=== PATIENT | male | born 1935 | race Caucasian/White ===

== ENCOUNTER → 2018-05-15 09:24 | Outpatient (CLI) | payer MEDICARE, OTHER, SELFPAY ==
[2018-05-15 12:25] LABS: AST(SGOT) 28 U/L (15-37); Alanine Aminotransfer ALT/SGPT 38 U/L (16-61); Albumin, Serum 3.7 g/dL (3.2-5.0); Alkaline Phosphatase 46 U/L (45-117); Anion Gap 10 (5-15); BUN 26 mg/dL (7-18); Calcium,Total 9.1 mg/dL (8.5-10.1); Chloride 104 mmol/L (98-107); Creatinine, Serum 1.24 mg/dL (0.70-1.30); EST Glomerular Filtration Rate 59 mL/min (>60); Est Glom Filt Rate - Afr Amer 72 mL/min (>60); Globulin 3.7 g/dL (2.2-4.2); Glucose 172 mg/dL (74-106); Potassium 4.3 mmol/L (3.5-5.1); Protein, Total 7.4 g/dL (6.4-8.2); Sodium Level 140 mmol/L (136-145)
[2018-05-15 12:41] LABS: Digoxin Level 1.08 ng/mL (0.80-2.00)
== END ==
PROVIDERS: Family Provider Family Medicine; PCP Family Medicine; Referring Provider Internal Medicine Cardiovascular Disease; Visit Provider Internal Medicine Cardiovascular Disease
DX: I47.2 Ventricular tachycardia (principal)
CPT/HCPCS: 36415; 80053; 80162

== ENCOUNTER → 2019-03-12 07:00 | Outpatient (CLI) | payer MEDICARE, OTHER, SELFPAY ==
[2019-03-12 10:05] LABS: Hematocrit 41.7 % (40-54); Hemoglobin 13.5 g/dL (13.0-16.5); Mean Corp Hgb Conc 32.4 g/dL (32-36); Mean Corpuscular Hgb 32.3 pg (27.0-32.0); Mean Corpuscular Volume 99.8 fL (80-94); Mean Platelet Vol. 11.2 fl (6.2-12.0); Platelet Count 179 K/mm3 (150-450); RBC Distribution Width CV 12.3 % (11.6-14.6); RBC Distribution Width SD 45.4 fl (35.1-43.9); Red Blood Count 4.18 M/mm3 (4.6-6.2); White Blood Count 7.6 K/mm3 (4.4-11.0)
[2019-03-12 10:22] LABS: Anion Gap 8 (5-15); BUN 23 mg/dL (7-18); BUN/Creat Ratio 19.7 RATIO (10-20); Chloride 107 mmol/L (98-107); Cholesterol 125 mg/dL (200); Creatinine, Serum 1.17 mg/dL (0.70-1.30); EST Glomerular Filtration Rate 63 mL/min (>60); Est Glom Filt Rate - Afr Amer 77 mL/min (>60); Glucose 124 mg/dL (74-106); High Density Lipoprotein 28 mg/dL; Potassium 4.4 mmol/L (3.5-5.1); Sodium Level 141 mmol/L (136-145); Triglycerides 599 mg/dL
[2019-03-12 10:37] LABS: Digoxin Level 1.12 ng/mL (0.80-2.00)
== END ==
PROVIDERS: Family Provider Family Medicine; PCP Family Medicine
DX: I50.22 Chronic systolic (congestive) heart failure (principal); Z95.810 Presence of automatic (implantable) cardiac defibrillator; I25.10 Atherosclerotic heart disease of native coronary artery without angina pectoris
CPT/HCPCS: 36415; 80048; 80061; 80162; 85027

== ENCOUNTER → 2019-09-17 07:14 | Outpatient (CLI) | payer MEDICARE, OTHER, SELFPAY ==
[2019-09-17 10:17] LABS: AST(SGOT) 32 U/L (15-37); Alanine Aminotransfer ALT/SGPT 43 U/L (16-61); Albumin, Serum 3.8 g/dL (3.2-5.0); Alkaline Phosphatase 43 U/L (45-117); Anion Gap 4 (5-15); BUN 25 mg/dL (7-18); BUN/Creat Ratio 20.2 RATIO (10-20); Calcium,Total 8.8 mg/dL (8.5-10.1); Chloride 106 mmol/L (98-107); Cholesterol 152 mg/dL (200); Creatinine, Serum 1.24 mg/dL (0.70-1.30); EST Glomerular Filtration Rate 59 mL/min (>60); Est Glom Filt Rate - Afr Amer 72 mL/min (>60); Globulin 3.8 g/dL (2.2-4.2); Glucose 153 mg/dL (74-106); High Density Lipoprotein 35 mg/dL; Potassium 4.1 mmol/L (3.5-5.1); Protein, Total 7.6 g/dL (6.4-8.2); Sodium Level 137 mmol/L (136-145); Triglycerides 533 mg/dL
[2019-09-17 10:39] LABS: Digoxin Level 1.16 ng/mL (0.80-2.00)
== END ==
PROVIDERS: PCP Family Medicine; Referring Provider Internal Medicine Cardiovascular Disease; Visit Provider Internal Medicine Cardiovascular Disease
DX: I25.10 Atherosclerotic heart disease of native coronary artery without angina pectoris (principal); I11.0 Hypertensive heart disease with heart failure; I50.9 Heart failure, unspecified; E78.5 Hyperlipidemia, unspecified
CPT/HCPCS: 36415; 80053; 80061; 80162

== ENCOUNTER → 2020-04-22 07:02 | Outpatient (CLI) | payer MEDICARE, OTHER, SELFPAY ==
[2020-04-22 11:00] LABS: ALB/GLOB Ratio 1.1 RATIO (0.9-2.4); AST(SGOT) 28 U/L (15-37); Alanine Aminotransfer ALT/SGPT 37 U/L (16-61); Albumin, Serum 3.7 g/dL (3.2-5.0); Alkaline Phosphatase 39 U/L (45-117); Anion Gap 6 (5-15); BUN 24 mg/dL (7-18); BUN/Creat Ratio 19.5 RATIO (10-20); Calcium,Total 8.9 mg/dL (8.5-10.1); Chloride 109 mmol/L (98-107); Cholesterol 94 mg/dL (200); Creatinine, Serum 1.23 mg/dL (0.70-1.30); EST Glomerular Filtration Rate 60 mL/min (>60); Est Glom Filt Rate - Afr Amer 72 mL/min (>60); Globulin 3.5 g/dL (2.2-4.2); Glucose 137 mg/dL (74-106); High Density Lipoprotein 35 mg/dL; Potassium 4.3 mmol/L (3.5-5.1); Protein, Total 7.2 g/dL (6.4-8.2); Sodium Level 141 mmol/L (136-145); Triglycerides 317 mg/dL; Very Low Density Lipoprotein 63 mg/dL (5-40)
== END ==
PROVIDERS: PCP Family Medicine; Referring Provider Internal Medicine Cardiovascular Disease; Visit Provider Internal Medicine Cardiovascular Disease
DX: I25.10 Atherosclerotic heart disease of native coronary artery without angina pectoris (principal); I42.9 Cardiomyopathy, unspecified; I11.0 Hypertensive heart disease with heart failure; I50.22 Chronic systolic (congestive) heart failure
CPT/HCPCS: 36415; 80053; 80061

== ENCOUNTER → 2021-01-17 12:56 | Outpatient (CLI) | payer MEDICARE, OTHER, SELFPAY ==
--- NOTE | 2021-01-17 12:57 | ECHOCS_ITS ---
Reason For Study: CAD Procedure This was a 2D Doppler, Color Flow transthoracic echocardiogram. The study was technically difficult. Contrast injection was performed. Bubble study performed. Exam performed in department. Left Ventricle Normal LV size. Severe segmental systolic dysfunction (see wall motion). The estimated ejection fraction is 25 %. No evidence for diastolic dysfunction. Infero-Basal: Hypokinetic. Basal inferoseptal: Hypokinetic. Mid-Anterior : Akinetic. Mid-Lateral : Akinetic. Mid-Posterior: Hypokinetic. Mid-Inferior: Hypokinetic. Mid-inferoseptal : Hypokinetic. Mid-anteroseptal : Akinetic. [place] : Akinetic. Right Ventricle Normal RV size. ICD or pacer leads identified within the right ventricle. Normal systolic function. Atria Normal left atrium. Normal right atrium. ICD or pacer leads identified within the right atrium. No doppler evidence for ASD. Mitral Valve There is no mitral annular calcification. Mild mitral valve prolapse. Mild-Moderate (1-2+) mitral valve insufficiency. Tricuspid Valve Normal tricuspid valve. Mild to moderate (1-2+) tricuspid valve insufficiency. Right ventricular systolic pressure estimated to be 23 mmHg. Aortic Valve Trisinus/trileaflet aortic valve. Mild diffuse aortic valve thickening. Pulmonic Valve The pulmonic valve is not well visualized. Trivial pulmonic valve insufficiency. Great Vessels Normal sized aortic root. Pericardium/Pleural No pericardial effusion. Medication 22 gauge I.V. with prn adaptor inserted into right arm. Diluted definity 2ml given slow IV push to enhance endocardial definition. Performed a rapid injection of agitated mix of 9 cc saline and 1cc air to assess for atrial septal defect. MMode/2D Measurements & Calculations LVIDd: 5.3 cm IVSd: 0.98 cm Ao root diam: 3.6 cm LVIDs: 4.7 cm LVPWd: 1.0 cm LA dimension: 4.2 cm FS: 11.5 % LAV(MOD-bp): 43.6 ml LA A4 area: 13.4 cm2 RA A4 area: 10.0 cm2 LAV(MOD-bp) Indexed: 22.9 ml/m2 LAV(MOD-sp2): 51.9 ml LAV(MOD-sp4): 32.7 ml Time Measurements MV dec time: 0.18 sec Doppler Measurements & Calculations MV E max aman: 42.9 cm/sec Lat Peak E' Aman: 12.6 cm/sec MV V2 max: 79.3 cm/sec MV A max aman: 66.3 cm/sec E/E' lat: 3.4 MV max P.5 mmHg MV E/A: 0.65 MV V2 mean: 38.8 cm/sec MV mean P.74 mmHg MV V2 VTI: 17.0 cm MV P1/2t max aman: 43.4 cm/sec Ao V2 max: 138.7 cm/sec LV V1 max: 109.1 cm/sec MV P1/2t: 134.2 msec Ao max P.7 mmHg LV V1 max P.8 mmHg MV dec slope: 94.7 cm/sec2 MVA(P1/2t): 1.6 cm2 PA V2 max: 116.5 cm/sec TR max aman: 225.6 cm/sec TR max P.4 mmHg ECHO/Echo Complete W/ Contrast Interpretation Summary The study was technically difficult. Contrast injection was performed. Severe segmental systolic dysfunction (see wall motion). The estimated ejection fraction is 25 %. Mild mitral valve prolapse. Mild-Moderate (1-2+) mitral valve insufficiency. Mild to moderate (1-2+) tricuspid valve insufficiency. Mild diffuse aortic valve thickening. Trivial pulmonic valve insufficiency. Right ventricular systolic pressure estimated to be 23 mmHg. No evidence for diastolic dysfunction. ICD or pacer leads identified within the right atrium ICD or pacer leads identified within the right ventricle. Ordering Physician: ZORA HORTON Referring Physician: CHUCKIE Hylton M.D. Performed By: Rolf Cain RCS
== END ==
PROVIDERS: PCP Family Medicine
DX: I25.10 Atherosclerotic heart disease of native coronary artery without angina pectoris (principal); I42.9 Cardiomyopathy, unspecified; E78.5 Hyperlipidemia, unspecified
CPT/HCPCS: 93306; Q9957; A4216; C8929; J3490

== ENCOUNTER 2021-01-29 23:39 | Inpatient (IN) | payer MEDICARE, OTHER, SELFPAY ==
[2021-01-30] VITALS (13 sets, daily range): BP systolic 95–149; BP diastolic 56–70; PULSE 60–90; RESP 16–18; TEMP 36.6–37.4; O2SAT 95–98; BMI 23.1; BMI 21.3
--- NOTE | 2021-01-30 00:42 | ED.RN ---
per family patient has been disoriented/confused for 1 week with balance issues. tonight states patient had about a 5 minute episode that he was convulsing and his eyes rolled in the back of his head. patient states he is here because he had heart surgery recently and he is doing fine. states heart surgery was 20 some years ago.
--- NOTE | 2021-01-30 01:21 | EKG12_ITS ---
Test Reason : DYSRHYTHMIA Blood Pressure : / mmHG Vent. Rate : 068 BPM Atrial Rate : 068 BPM P-R Int : 238 ms QRS Dur : 124 ms QT Int : 346 ms P-R-T Axes : -14 -09 225 degrees QTc Int : 367 ms Sinus rhythm with 1st degree A-V block Septal infarct , age undetermined Abnormal ECG Confirmed by CANDELARIO RAMIREZ, OLIVE ([id number]), editorial project manager CLAUDIA JONES ([id number]) on 01/30/2021 11:53:30 AM Referred By: SANJANA Confirmed By:OLIVE PALOMINO MD
--- NOTE | 2021-01-30 01:21 | CT_ITS ---
STUDY: CT BRAIN WITHOUT CONTRAST REASON FOR EXAM: Male, 85 years old. CONFUSION RADIATION DOSAGE (If Supplied By Facility): CTDIvol = ( 44.99 ) mGy, DLP = ( 846.73 ) mGycm TECHNIQUE: Transaxial CT imaging of the brain was performed without administration of intravenous contrast material. Individualized dose optimization techniques were used for this CT. COMPARISON: No relevant priors. FINDINGS: There is no intra-/extra-axial fluid collection, mass effect, or midline shift. The hagen/white matter junction is preserved. Hypoattenuation of periventricular and subcortical white matter suggestive of chronic small vessel ischemic disease. Mild diffuse parenchymal volume loss is noted. There is vascular calcification. The basal cisterns are patent. Mucoperiosteal thickening of the bilateral maxillary sinuses is seen. There is partial opacification of the right mastoid air cells. The calvarium is intact. CT/Brain/Head without Contrast IMPRESSION: No acute intracranial finding. MRI may be obtained if clinically indicated. Electronically Signed: Mario Jack MD at 2:37 EDT Tel , Service support ,
--- NOTE | 2021-01-30 01:23 | EX.ED.DYSGE1 ---
HPI History of Present Illness Chief Complaint: Confusion Informant: patient, spouse/S.O. and family Onset/Context/Timing Onset: Days Context: Gradual Onset Timing: Continuous Current Severity: Mild Maximum Severity: Mild Narrative Narrative: 85-year-old male history of prior WA, sudden cardiac , prior CABG, pacemaker defibrillator. For the last week since Saturday has had gradual onset of decreased mental status. Tonight he had episode where his thought he had a seizure where he began shaking he was unresponsive his eyes rolled up in his head he was seated that time. He denies any head trauma that he had a recent fever chills nausea or vomiting. Patient himself denies any complaints. Prior similar symptoms: No Recent Illness/Hospitalization: No PFSH PFSH Medical History High cholesterol Hypertension ICD (implantable cardioverter-defibrillator) in place Myocardial infarct Sudden cardiac arrest Allergy/AdvReac Type Severity Reaction Status Date / Time No Known Allergies Allergy Verified 01/30/21 00:33 Surgical History Hx of CABG Social History Smoking Status: Never smoker ROS ROS ED ROS Narrative Denies any recent illness. Review of Systems ROS Unobtainable: Denies due to encephalopathy Constitutional Constitutional ED: Denies chills or fever(s) Eyes Eyes: Denies change in vision ENT ENT ED: Denies ear pain or sore throat Cardiovascular Cardiovascular: Denies chest pain Respiratory/Chest Respiratory/Chest: Denies cough, dyspnea or sputum Gastrointestinal Gastrointestinal: Denies abdominal pain, diarrhea, nausea or vomiting Genitourinary Genitourinary ED: Denies dysuria or hematuria Musculoskeletal Musculoskeletal: Denies arthralgias or myalgias Integumentary Denies abscess or rash Neurologic Neurologic: Denies headache(s) Psychiatric Psychiatric: Denies depression Endocrine Endocrinology: Denies polyuria Allergic/Immunologic Allergic/Immunologic ED: Denies urticaria EXAM Physical Exam Narrative Exam Narrative: Elderly male no acute distress vital signs stable afebrile. Pulse ox 97% on room air. and family at bedside. HEENT exam unremarkable atraumatic. Pupils round reactive light. Normal speech no facial droop. Neck nontender. Lungs clear to auscultation. Heart regular rhythm no murmur. Abdomen soft nontender normal bowel sounds no peritoneal signs. Moving all 4 extremities. Neurologically is awake and alert. He knows the president, the place he knows the month and he knows the year. He has no focal motor deficits. Const Vital Signs: 01/30/21 00:33 01/30/21 00:41 01/30/21 02:40 Temperature 98 F Temperature Source Temporal Pulse Rate 67 90 Respiratory Rate 16 18 Respiratory Effort Normal Respiratory Pattern Normal Blood Pressure 123/60 H 149/70 H Blood Pressure Mean 81 96 Pulse Ox 97 98 Oxygen Delivery Method Room Air Room Air Positive well nourished and well developed General Appearance ED: well developed and NAD HEENT Reports moist mucous membranes Negative for trauma or tenderness Eyes PERRL and EOMs intact bilaterally Neck no lymphadenopathy, supple and no JVD General: Negative for tenderness Chest Wall inspection of chest normal and palpation of chest normal Resp normal respiratory effort and clear to auscultation bilaterally Effort and Inspection: pain with movement Cardio regular rate, regular rhythm, S1 normal heart sound, S2 normal heart sound and no murmurs GI normal to inspection, nondistended, normoactive bowel sounds, non-tender, non-distended and no masses Inspection: Negative for abdominal distention Auscultation: normoactive bowel sounds Palpation: soft; Negative for tender, guarding or rebound tenderness present Back/Spine no CVA tenderness General Back: Negative for CVA tenderness Cervical Spine: Negative for cervical spine tenderness Thoracic Spine / Upper Back: Negative for thoracic spinal tenderness Extremity normal to inspection General Extremety ED: Negative for edema or tenderness General Extremity: Negative for edema Neuro oriented x3, CN's II-XII intact bilaterally and no sensory deficits noted Sensorium / Orientation: alert; Negative for orientation impaired, lethargic or stuporous Motor Exam: strength 5/5 throughout Psych mental status grossly normal Skin no rashes or lesions noted and no wounds MDM MDM MDM Narrative Medical decision making narrative: Elderly male with decreased mental status for last 5 to 7 days. May have had a seizure tonight. CAT scan labs are pending. Exam benign. At 2:40 AM I was called to the room patient was having an acute tonic-clonic seizure. It was given a milligram of Ativan the seizure was resolving just prior to the Ativan being given. He will be loaded with Keppra. He will be admitted to the hospital. Currently he is post ictal. Lab Data Attestation: I reviewed the patient's lab results. Lab results narrative: CBC White count 8. Hemoglobin 12.9. Electrolytes sodium 133. Gap 7. Creatinine 1.47. Glucose elevated 397. UA negative. EKG normal sinus rhythm rate of 68 with a first-degree AV block. No acute signs of WA or acute ischemia. Chest x-ray and CT of his brain are unremarkable. Labs: Laboratory Results - last 24 hr 01/30/21 01/30/21 01/30/21 01:04 01:04 01:10 WBC 8.9 RBC 4.00 L Hgb 12.9 L Hct 36.9 L MCV 92.3 MCH 32.3 H MCHC 35.0 RDW Std Deviation 39.8 RDW Coeff of Alfredo 11.7 Plt Count 172 MPV 11.6 Immature Gran % (Auto) 0.600 Neut % (Auto) 54.2 Lymph % (Auto) 34.7 [place] % (Auto) 9.5 Eos % (Auto) 0.5 Baso % (Auto) 0.5 Absolute Neuts (auto) 4.8 Absolute Lymphs (auto) 3.07 Nucleated RBC % 0 Sodium 133 L Potassium 4.3 Chloride 100 Carbon Dioxide 26.0 Anion Gap 7 BUN 28 H Creatinine 1.47 H Estim Creat Clear Calc 37.93 Est GFR (MDRD) Af Amer 59 L Est GFR (MDRD) Non-Af 48 L BUN/Creatinine Ratio 19.0 Glucose 397 H Calcium 8.9 Urine Color Yellow Urine Clarity Clear Urine pH 5.0 Ur Specific [place] 1.015 Urine Protein Negative Urine Glucose (UA) 1000 H Urine Ketones Negative Urine Occult Blood Negative Urine Nitrite Negative Urine Bilirubin Negative Urine Urobilinogen Normal Ur Leukocyte Esterase Negative Urine RBC 0 SEEN Urine WBC 0 SEEN Ur Squamous Epith Cells 0 SEEN Urine Bacteria 0 SEEN Urine Mucus 0 SEEN Radiography Chest X-Ray - ED: 1 View, Read by ED Physician, Read by Radiologist, Heart, Lungs, Mediastinum, Bony Structures, No Acute Disease and Chronic Changes Diagnostic Testing: Radiology Impression Brain CT 01/30/21 01:21 IMPRESSION: No acute intracranial finding. MRI may be obtained if clinically indicated. Electronically Signed: Mario Jack MD at 2:37 EDT Tel , Service support , Chest X-Ray 01/30/21 02:00 IMPRESSION: No acute cardiopulmonary process. Electronically Signed: Mario Jack MD at 2:38 EDT Tel , Service support , Rhythm Strip Rhythm Strip: Sinus Rhythm Rate: 68 Ectopy: None EKG Initial EKG: Attestation: I personally reviewed and interpreted this EKG as follows: Interpretation: Sinus Rhythm and No Acute Injury Pattern Comments: Sinus rhythm first-degree AV block with a [place] interval 238. No acute signs of [place] or ischemia. No old EKG available at this time. Prior EKG tracings: not available for review Critical Care Time Critical Care Time: Yes Critical care time (excluding procedures): 30-74 minutes, Including time spent:, Discussing w/Patient &/or Family/Mixed Crop [employer], Discussing w/Consultants, Arranging Admission or Transfer, Performing Direct Patient Care at Bedside and - (32 minutes.) Discharge Plan Dx/Rx/DC Orders Clinical Impression: New onset seizure, Acute alteration in mental status, Acute hyperglycemia, Acute hyponatremia Disposition Disposition: [facility] ([facility]3] Care [facility]
[2021-01-30 01:28] LABS: Bacteria 0 SEEN /hpf (None Seen); Mucous, Urine 0 SEEN /hpf (<or=2+); Red Blood Cells-Urine 0 SEEN /hpf (0-5); Squamous Epithelial Cells - UA 0 SEEN /hpf (0-5); White Blood Cells 0 SEEN /hpf (0-5)
[2021-01-30 01:29] LABS: Absolute Lymphocyte Count 3.07 X10^3/uL (0.83-4.51); Absolute Neutrophil Count 4.8 X10^3/uL (2.0-7.7); Basophil# 0.04 X10^3/uL; Basophil% 0.5 % (0-1); Eosinophil# 0.04 X10^3/uL; Eosinophils% 0.5 % (0-5); Hematocrit 36.9 % (40-54); Hemoglobin 12.9 g/dL (13.0-16.5); Lymphocyte # 3.07 X10^3/ul (0.83-4.51); Lymphocyte % 34.7 % (19-41); Mean Corpuscular Hgb 32.3 pg (27.0-32.0); Mean Corpuscular Volume 92.3 fL (80-94); Mean Platelet Vol. 11.6 fl (6.2-12.0); Monocyte# 0.84 X10^3/uL; Monocyte% 9.5 % (0-10); NRBC Flagged by Analyzer 0 % (0-5); Neutrophil # 4.81 X10^3/uL (2.7-7.7); Neutrophil % 54.2 % (47-70); Platelet Count 172 K/mm3 (150-450); RBC Distribution Width CV 11.7 % (11.6-14.6); RBC Distribution Width SD 39.8 fl (35.1-43.9); White Blood Count 8.9 K/mm3 (4.4-11.0)
[2021-01-30 01:30] LABS: Color, Urine Yellow (Yellow); Glucose, Dipstick 1000 mg/dl (Normal); Ketone-Dipstick Negative (Negative); Leukocyte Esterase-Dipstick Negative /ul (Negative); Nitrite-Dipstick Negative (Negative); Occult Blood-Urine Negative /ul (Negative); Protein-Dipstick Negative (Negative); Specific Gravity, Urine 1.015 (1.002-1.030); Urine Bilirubin Dipstick Negative (Negative); Urine Clarity Clear (Clear); Urine Urobilinogen Normal (Normal)
[2021-01-30 01:43] LABS: Anion Gap 7 (5-15); BUN 28 mg/dL (7-18); Calcium,Total 8.9 mg/dL (8.5-10.1); Chloride 100 mmol/L (98-107); Creatinine, Serum 1.47 mg/dL (0.70-1.30); EST Glomerular Filtration Rate 48 mL/min (>60); Est Glom Filt Rate - Afr Amer 59 mL/min (>60); Estimated Creatinine Clearance 37.93 ml/min; Glucose 397 mg/dL (74-106); Potassium 4.3 mmol/L (3.5-5.1); Sodium Level 133 mmol/L (136-145)
--- NOTE | 2021-01-30 02:00 | RAD_ITS ---
STUDY: X-RAY CHEST REASON FOR EXAM: Male, 85 years old. ms change TECHNIQUE: 1 view COMPARISON: None. FINDINGS: Left-sided AICD in place. Cardiomediastinal silhouette is unremarkable. Costophrenic angles are sharp. Calcified granulomas in the right lung base and left mid to upper lung zones. Lungs are otherwise clear. The trachea is midline. There is no pneumothorax. Multilevel thoracic spondylosis. Status post median sternotomy. RAD/Chest 1 View (Portable) IMPRESSION: No acute cardiopulmonary process. Electronically Signed: Mario Jack MD at 2:38 EDT Tel , Service support ,
[2021-01-30] MEDS: LORazepam 2 MG/ML Syringe 1 MG IV (02:40)
--- NOTE | 2021-01-30 02:42 | NURSING ---
nursing staff called into the room. patient noted to have seizure. patient upper arm jerking and eye rolled back into the head. patient seizure last roughly [address] Ware in the room. Patient drowsy and confused afterwards. patient placed in seizure precautions and 1 mg Ativan given.
--- NOTE | 2021-01-30 02:52 | HP.PCM.HOS_ITS ---
HPI - General General Date of Admission: 01/30/21 HPI Narrative AMBAR LAMB, is a 85 M with an extensive PMH as outlined who presents via the ED with a complaint of altered mental status. Family has noticed that for the last week, he has been getting more confused at home. He had been behaving oddly and driving erratically during the past week. His noticed what she thinks was a seizure at home on the night of admission. He had a tonic clonic seizure in the ED. Rest of history was unremarkable. Vitals were blood pressure of 149/70, pulse rate of 90, respiratory rate of 18 and saturation of 98% on room air. CBC showed hemoglobin of 12.9 with WBC of 8.9 and platelets of 172. Chemistry shows sodium of 133 with potassium of 4.3 and creatinine of 1.47 as well as glucose of 397. Patient is not a known diabetic. Urinalysis is negative for UTI. CT of the brain was negative for any acute intracranial pathology. He is being admitted to be managed for new onset seizure. History taken from patient's and daughter. [facility] Medical History High cholesterol Hypertension ICD (implantable cardioverter-defibrillator) in place Myocardial infarct Sudden cardiac arrest Home Medications aspirin [Aspir-81] 81 mg PO DAILY 01/30/21 [History Last Taken Unknown] carvedilol 25 mg PO BID 01/30/21 [History Last Taken Unknown] colestipol 5 g PO TID 01/30/21 [History Last Taken Unknown] digoxin [Lanoxin] 250 mcg PO DAILY 01/30/21 [History Last Taken Unknown] icosapent ethyl [Vascepa] 2 g PO BID 01/30/21 [History Last Taken Unknown] lisinopril 10 mg PO BID 01/30/21 [History Last Taken Unknown] xb-lwh-PV-Da-Ve-yiaefpl-lutein [Centrum] 1 tab PO DAILY 01/30/21 [History Last Taken Unknown] omega-3 fatty acids-vitamin E [Fish Oil] 1 cap PO BID 01/30/21 [History Last Taken Unknown] rosuvastatin 20 mg PO DAILY 01/30/21 [History Last Taken Unknown] spironolactone [Aldactone] 25 mg PO DAILY 01/30/21 [History Last Taken Unknown] Allergy/AdvReac Type Severity Reaction Status Date / Time No Known Allergies Allergy Verified 01/30/21 00:33 Surgical History Hx of CABG Social History Smoking Status: Never smoker ROS Review of Systems ROS Unobtainable: due to encephalopathy Vital Signs Vital Signs Vital Signs: 01/30/21 00:33 01/30/21 00:41 01/30/21 02:40 Temperature 98 F Temperature Source Temporal Pulse Rate 67 90 Respiratory Rate 16 18 Respiratory Effort Normal Respiratory Pattern Normal Blood Pressure 123/60 H 149/70 H Blood Pressure Mean 81 96 Pulse Ox 97 98 Oxygen Delivery Method Room Air Room Air Weight Weight: 161 lb 9.581 oz Body Mass Index (BMI) 23.1 Physical Exam Const alert and no apparent distress Orientation / Consciousness: confused and lethargic HEENT normocephalic, head/scalp atraumatic, hearing grossly normal bilaterally and moist oral mucous membranes Eyes PERRL, EOMs intact bilaterally and conjunctivae normal Neck no lymphadenopathy and supple Resp normal respiratory effort, no retractions, no use of accessory muscles and clear to auscultation bilaterally Cardio regular rate, regular rhythm, S1 normal heart sound, S2 normal heart sound and no murmurs GI normal to inspection, nondistended, normoactive bowel sounds, soft to palpation, non-tender and non-distended Extremity normal to inspection, full ROM and no clubbing, cyanosis or edema Peripheral Pulses: Yes pulses 2+ throughout Skin no rashes or lesions noted Neuro CN's II-XII intact bilaterally and moves all extremities Neuro Narrative: lethargic, confused. Psych Psych Narrative: confused Results Lab / Micro Data Result Diagrams: 01/30/21 04:50 01/30/21 04:50 Labs: Laboratory Results - last 24 hr 01/30/21 01:04: WBC 8.9, RBC 4.00 L, Hgb 12.9 L, Hct 36.9 L, MCV 92.3, MCH 32.3 H, MCHC 35.0, RDW Std Deviation 39.8, RDW Coeff of Alfredo 11.7, Plt Count 172, MPV 11.6, Immature Gran % (Auto) 0.600, Neut % (Auto) 54.2, Lymph % (Auto) 34.7, [place] % (Auto) 9.5, Eos % (Auto) 0.5, Baso % (Auto) 0.5, Absolute Neuts (auto) 4.8, Absolute Lymphs (auto) 3.07, Nucleated RBC % 0 01/30/21 01:04: Sodium 133 L, Potassium 4.3, Chloride 100, Carbon Dioxide 26.0, Anion Gap 7, BUN 28 H, Creatinine 1.47 H, Estim Creat Clear Calc 37.93, Est GFR (MDRD) Af Amer 59 L, Est GFR (MDRD) Non-Af 48 L, BUN/Creatinine Ratio 19.0, Glucose 397 H, Calcium 8.9 01/30/21 01:10: Urine Color Yellow, Urine Clarity Clear, Urine pH 5.0, Ur Specific [place] 1.015, Urine Protein Negative, Urine Glucose (UA) 1000 H, Urine Ketones Negative, Urine Occult Blood Negative, Urine Nitrite Negative, Urine Bilirubin Negative, Urine Urobilinogen Normal, Ur Leukocyte Esterase Negative, Urine RBC 0 SEEN, Urine WBC 0 SEEN, Ur Squamous Epith Cells 0 SEEN, Urine Bacteria 0 SEEN, Urine Mucus 0 SEEN Rhythm Strip Rhythm Strip: Sinus Rhythm Rate: 68 Ectopy: None Radiology Impression Brain CT 01/30/21 01:21 IMPRESSION: No acute intracranial finding. MRI may be obtained if clinically indicated. Electronically Signed: Mario Jack MD at 2:37 EDT Tel , Service support , Chest X-Ray 01/30/21 02:00 IMPRESSION: No acute cardiopulmonary process. Electronically Signed: Mario Jack MD at 2:38 EDT Tel , Service support , Assessment & Plan Assessment/Plan (1) New onset seizure: (2) Acute alteration in mental status: (3) Acute hyperglycemia: (4) Acute hyponatremia: PLAN: #Acute metabolic encephalopathy due to new onset seizure * admit to PCU with telemetry * patient loaded with IV keppra in the ED. Will continue with IV keppra 500mg bid * seizure precautions. Fall precautions * consult neurology * get MRI of the brain-patient has ICD in place, so will need to determine if it is MRI compatible or otherwise * #New onset seizures: management as above #Hyperglycemia * patient is not a known diabetic. * blood sugar was 397 * will check A1C * start insulin sliding scale * accuchecks ACHS * yperglycemia possibly due to adrenaline response to seizure. * #Elevated Cr * Cr is 1.47; doesnt meet criteria for ORLIN as his basline is usually ~ 1.2 * will hydrate gently with IVF and trend * #DVT prophylaxis: SCDs. Code status: DNRCCA * Patient's daughter and counseled extensively about different types of CODE STATUS including full code, DNR CCA and DNR CCA. said patient had always been reticent about discussing his wishes and respect to his CODE STATUS. When probed that she might have to decide for him since he is now encephalopathic, initially demurred but after being pushed by her daughter, I decided to make patient DNR CCA with no intubation as she says she knew he would never want to be intubated or sedated. * Total [id number] time 18 minutes. Charges/Coding Visit Charges Inpatient E&M: 98740 Init Hosp L3 Procedures Hospitalists Procedures: 67046 Advncd Care Plan 30 Min
[2021-01-30] MEDS: levETIRAcetam IV 1,000 MG/100 ML BAG 400 MG IV (03:09)
[2021-01-30] MEDS: 0.9% Saline Lock 10 ML Syringe IV (04:46)
[2021-01-30] MEDS: 0.9% Normal Saline 1,000 ML 125 ML IV ×2 (04:52→12:23)
[2021-01-30 05:00] LABS: Absolute Lymphocyte Count 2.16 X10^3/uL (0.83-4.51); Absolute Neutrophil Count 6.3 X10^3/uL (2.0-7.7); Basophil# 0.04 X10^3/uL; Basophil% 0.4 % (0-1); Eosinophil# 0.02 X10^3/uL; Eosinophils% 0.2 % (0-5); Hematocrit 37.6 % (40-54); Hemoglobin 12.4 g/dL (13.0-16.5); Lymphocyte # 2.16 X10^3/ul (0.83-4.51); Lymphocyte % 23.3 % (19-41); Mean Corpuscular Hgb 32.9 pg (27.0-32.0); Mean Corpuscular Volume 99.7 fL (80-94); Mean Platelet Vol. 11.4 fl (6.2-12.0); Monocyte# 0.75 X10^3/uL; Monocyte% 8.1 % (0-10); NRBC Flagged by Analyzer 0 % (0-5); Neutrophil # 6.28 X10^3/uL (2.7-7.7); Neutrophil % 67.6 % (47-70); Platelet Count 158 K/mm3 (150-450); RBC Distribution Width CV 11.8 % (11.6-14.6); RBC Distribution Width SD 42.9 fl (35.1-43.9); Red Blood Count 3.77 M/mm3 (4.6-6.2); White Blood Count 9.3 K/mm3 (4.4-11.0)
[2021-01-30 05:16] LABS: Anion Gap 9 (5-15); BUN 29 mg/dL (7-18); Calcium,Total 8.8 mg/dL (8.5-10.1); Chloride 102 mmol/L (98-107); Creatinine, Serum 1.38 mg/dL (0.70-1.30); EST Glomerular Filtration Rate 52 mL/min (>60); Est Glom Filt Rate - Afr Amer 63 mL/min (>60); Estimated Creatinine Clearance 37.31 ml/min; Glucose 365 mg/dL (74-106); Magnesium 2.1 mg/dL (1.6-2.6); Potassium 4.1 mmol/L (3.5-5.1); Sodium Level 133 mmol/L (136-145)
[2021-01-30] MEDS: Insulin Lispro 100 UNIT/ML INSULN.PEN SC ×4 (06:16→22:46)
[2021-01-30 06:21] LABS: Bedside Glucose 356 mg/dL (70-110)
[2021-01-30 09:22] LABS: Hemoglobin A1c 10.2 % (3.8-5.6)
--- NOTE | 2021-01-30 10:17 | TELEMED_ITS ---
[facility] Telemed has confirmed receipt of a request for visit. This document confirms receipt of the order initiating the consult. To find the results of the consultation, please view the patient's reports for the scanned Telemed Consult.
--- NOTE | 2021-01-30 10:30 | CASEMGMT ---
RN CM Face to Face with patient for initial transition planning/care coordination assessment. RN CM introduced self and role at [facility]. Patient lying in bed, alert and oriented, and daughter at bedside. Patient withdrawn and willing to participate in assessment and is able to answer all questions appropriately. Care providers, pharmacy, and demographics verified. Patient and wish for patient to discharge home, will monitor for need for HHC pending progress with therapy. states she has no further needs or concerns at this time. CM to follow for discharge planning needs that may arise. PCP: [facility] but has retired. Patient provided with list of PCPs Specialists: [facility] Preferred Pharmacy: [facility] Insurance: [facility], [place] Prescription Benefit: yes Living Will/HPOA: yes, Yari Alonzo LNOK: , daughter Living Arrangements: Patient lives with in a 2 story home with bed and bath on first floor. 1 step to enter the home. Patient is independent at home. Transportation: self//daughter DME/HHC: Patient has shower chair, raised toilet, cane, walker, and grab bars at home. No previous HHC or SNF. Disposition Plan: Patient to discharge home with family support and follow-up plans in place. Will monitor for need for HHC at discharge. Krysta REID, RN, CM
--- NOTE | 2021-01-30 12:26 | NURSING ---
Addendum entered by Ellyn Boudreaux 01/30/21 13:24: Per Ai in MRI, device is not compatible for MRI Original Note: Patient's brought info book on pacer/AICD. It says device was implanted 02/16/13. It is a [employer] Incepta ICD Model E161. SN: [id number]
[2021-01-30 12:31] LABS: Bedside Glucose 291 mg/dL (70-110)
--- NOTE | 2021-01-30 13:17 | PCM.PN.HOSP ---
Documented by User: Shira Atwood NP, BARREL ASSEMBLER-C 01/30/21 13:27 Subjective Subjective Patient seen and examined. Denies current symptoms or complaints. Denies further seizure activity. Patient's and daughter at bedside have multiple concerns including patient having balance issues which has been ongoing for some time now, patient difficulty swallowing water and patient depression. Discussed plan of care with family. is to bring in pacemaker information to check MRI compatibility. Objective Data Objective Data Vital Signs: Vital Signs Temp Pulse Resp BP Pulse Ox 97.8 F 60 16 115/62 98 01/30/21 10:15 01/30/21 10:15 01/30/21 10:15 01/30/21 10:15 01/30/21 10:15 Oxygen Delivery Method Room Air Weight: 148 lb 9.465 oz Body Mass Index (BMI) 21.3 Intake & Output: Intake and Output for Last 24 Hours 01/28/21 01/29/21 01/30/21 23:59 23:59 23:59 Intake Total 1111.25 / 1111.25 Output Total 200 / 200 Balance 911.25 / 911.25 Lab / Micro Data Result Diagrams: 01/30/21 04:50 01/30/21 04:50 Labs: Laboratory Results - last 24 hr 01/30/21 01:04: WBC 8.9, RBC 4.00 L, Hgb 12.9 L, Hct 36.9 L, MCV 92.3, MCH 32.3 H, MCHC 35.0, RDW Std Deviation 39.8, RDW Coeff of Alfredo 11.7, Plt Count 172, MPV 11.6, Immature Gran % (Auto) 0.600, Neut % (Auto) 54.2, Lymph % (Auto) 34.7, Cavalier % (Auto) 9.5, Eos % (Auto) 0.5, Baso % (Auto) 0.5, Absolute Neuts (auto) 4.8, Absolute Lymphs (auto) 3.07, Nucleated RBC % 0 01/30/21 01:04: Sodium 133 L, Potassium 4.3, Chloride 100, Carbon Dioxide 26.0, Anion Gap 7, BUN 28 H, Creatinine 1.47 H, Estim Creat Clear Calc 37.93, Est GFR (MDRD) Af Amer 59 L, Est GFR (MDRD) Non-Af 48 L, BUN/Creatinine Ratio 19.0, Glucose 397 H, Calcium 8.9 01/30/21 01:10: Urine Color Yellow, Urine Clarity Clear, Urine pH 5.0, Ur Specific [place] 1.015, Urine Protein Negative, Urine Glucose (UA) 1000 H, Urine Ketones Negative, Urine Occult Blood Negative, Urine Nitrite Negative, Urine Bilirubin Negative, Urine Urobilinogen Normal, Ur Leukocyte Esterase Negative, Urine RBC 0 SEEN, Urine WBC 0 SEEN, Ur Squamous Epith Cells 0 SEEN, Urine Bacteria 0 SEEN, Urine Mucus 0 SEEN 01/30/21 04:50: WBC 9.3, RBC 3.77 L, Hgb 12.4 L, Hct 37.6 L, MCV 99.7 H D, MCH 32.9 H, MCHC 33.0 D, RDW Std Deviation 42.9, RDW Coeff of Alfredo 11.8, Plt Count 158, MPV 11.4, Immature Gran % (Auto) 0.400, Neut % (Auto) 67.6, Lymph % (Auto) 23.3, Cavalier % (Auto) 8.1, Eos % (Auto) 0.2, Baso % (Auto) 0.4, Absolute Neuts (auto) 6.3, Absolute Lymphs (auto) 2.16, Nucleated RBC % 0 01/30/21 04:50: Sodium 133 L, Potassium 4.1, Chloride 102, Carbon Dioxide 22.0, Anion Gap 9, BUN 29 H, Creatinine 1.38 H, Estim Creat Clear Calc 37.31, Est GFR (MDRD) Af Amer 63, Est GFR (MDRD) Non-Af 52 L, BUN/Creatinine Ratio 21.0 H, Glucose 365 H, Calcium 8.8, Magnesium 2.1 01/30/21 04:50: Hemoglobin A1c 10.2 H 01/30/21 06:14: POC Glucose 356 H 01/30/21 12:20: POC Glucose 291 H Radiography Diagnostic Testing: Radiology Impression Brain CT 01/30/21 01:21 IMPRESSION: No acute intracranial finding. MRI may be obtained if clinically indicated. Electronically Signed: Mario Jack MD at 2:37 EDT Tel , Service support , Chest X-Ray 01/30/21 02:00 IMPRESSION: No acute cardiopulmonary process. Electronically Signed: Mario Jack MD at 2:38 EDT Tel , Service support , Rhythm Strip Rhythm Strip: Sinus Rhythm Rate: 68 Ectopy: None Physical Exam Const alert, oriented x3 and no apparent distress Orientation / Consciousness: awake, oriented to person, oriented to place and oriented to time HEENT normocephalic and moist oral mucous membranes Eyes PERRL, EOMs intact bilaterally and conjunctivae normal Neck no lymphadenopathy Resp normal respiratory effort and clear to auscultation bilaterally Cardio regular rate, regular rhythm and no murmurs Peripheral Pulses: pulses 2+ throughout GI normal to inspection, nondistended, normoactive bowel sounds, non-tender and non-distended Extremity normal to inspection Skin no rashes or lesions noted Lesions: no lesions Rashes: no rashes Trauma: no lacerations or abrasions Neuro CN's II-XII intact bilaterally, no focal motor deficits, no sensory deficits noted and deep tendon reflexes 2+ bilaterally Psych mental status grossly normal and affect normal Assessment & Plan Assessment/Plan (1) New onset seizure: PLAN: 1. New onset seizure- IV keppra. Brain CT normal. Obtain MRI if pacer compatible. Awaiting pacer card from . If patient is unable to have MRI, plan for repeat brain CT with and without contrast in a.m. Seizure precautions. Plan for discharge on Keppra 500 mg twice daily and further neurology follow-up as outpatient. 2. Acute metabolic encephalopathy, secondary to #1-improved. 3. New onset type 2 diabetes mellitus-hemoglobin A1c 10.2%. Accu-Cheks with sliding scale insulin. Begin Lantus as well. 4. Difficulty swallowing- reports this has been ongoing, speech therapy consult. 5. Gait imbalance- ongoing for several months. PT/OT. 6. Hyperlipidemia/hypertriglyceridemia-on a colestipol, vascepa, statin. 7. Hypertension-stable, on carvedilol, lisinopril, Aldactone. DVT prophylaxis- Lovenox md This patient was seen by ADRIANO Cheatham under the supervision of Dr. Perla. Documented by User: Dr. Gianna Perla MD 01/30/21 16:48 Objective Data Lab / Micro Data Result Diagrams: 01/30/21 04:50 01/30/21 04:50 Charges/Coding Addendum Addendum: This patient was seen in conjunction with Shira Atwood. I have independently interviewed and examined the patient and reviewed pertinent historical, laboratory, and other data. I have reviewed her note and concur with her documentation Patient was seen and examined. and daughter at the bedside. gives a history of progressive gait instability ongoing for months. Patient has also been choking on clear liquids. He does not choke on juice or pop. Patient's will bring his pacemaker card to check for MRI compatibility Physical Exam: Gen: Comfortable, not pale, not jaundiced CVS:HS I +II, regular, no murmurs RESP:CTA GI: BS present and normal, soft, nontender, no palpable organs EXT:No edema ASSESSMENT: 1. New-onset seizure 2. Acute metabolic encephalopathy 3. New-onset Type 2 DM 4. Dysphagia 5. Hypertension 6. Hyperlipidemia Plan: Continue on IV Keppra Continue on IV fluids, Lantus and blood glucose monitoring Will follow up on MRI Otherwise we will repeat CT scan in a.m. Visit Charges Inpatient E&M: 90785 Subs Hosp L2
[2021-01-30 16:31] LABS: Bedside Glucose 237 mg/dL (70-110)
[2021-01-30] MEDS: Carvedilol 25 MG Tablet PO (22:44)
[2021-01-30] MEDS: Atorvastatin Calcium 40 MG Tablet PO (22:44)
[2021-01-30] MEDS: Lisinopril 10 MG Tablet PO (22:44)
[2021-01-30 23:01] LABS: Bedside Glucose 231 mg/dL (70-110)
[2021-01-31] VITALS (7 sets, daily range): BP systolic 100–134; BP diastolic 54–68; PULSE 64–76; RESP 16; TEMP 36.7–37; O2SAT 96–98
--- NOTE | 2021-01-31 05:55 | CT_ITS ---
STUDY: CT BRAIN WITH AND WITHOUT CONTRAST REASON FOR EXAM: Male, 85 years old. Seizure -- To be completed 01/31/2021 a.m RADIATION DOSAGE (If Supplied By Facility): CTDIvol = ( 44.99 ) mGy, DLP = ( 2416.45 ) mGycm TECHNIQUE: Transaxial CT imaging of the brain was performed pre and post contrast administration. The examination was performed with intravenous administration of IV 50mL Isovue-370. Individualized dose optimization techniques were used for this CT. COMPARISON: Comparison is made with prior study dated 01/30/2021. FINDINGS: Normal soft tissue structures. Normal calvarium. There is mild cerebral atrophy with widening of the extra-axial spaces and ventricular dilatation. Normal white matter tracts of the cerebral hemispheres. Normal basal ganglia and thalami. Normal brainstem. Normal cerebellum. There is no intracranial hemorrhage. There are no findings of an acute ischemic infarction. Mucosal thickening along the inferior aspect of the right maxillary sinus. CT/Brain/Head W/WO Contrast IMPRESSION: Chronic involutional changes of the brain. Electronically Signed: Ankush Hernandez MD at 10:09 EDT , Service support ,
[2021-01-31 06:33] LABS: Anion Gap 10 (5-15); BUN 19 mg/dL (7-18); BUN/Creat Ratio 16.5 RATIO (10-20); Calcium,Total 7.9 mg/dL (8.5-10.1); Chloride 105 mmol/L (98-107); Creatinine, Serum 1.15 mg/dL (0.70-1.30); EST Glomerular Filtration Rate 64 mL/min (>60); Est Glom Filt Rate - Afr Amer 78 mL/min (>60); Estimated Creatinine Clearance 44.77 ml/min; Glucose 189 mg/dL (74-106); Potassium 3.6 mmol/L (3.5-5.1); Sodium Level 137 mmol/L (136-145)
[2021-01-31] MEDS: Enoxaparin 40 MG/0.4 ML Syringe SC (06:40)
[2021-01-31] MEDS: Insulin Lispro 100 UNIT/ML INSULN.PEN SC ×3 (06:41→16:21)
[2021-01-31 06:51] LABS: Bedside Glucose 213 mg/dL (70-110)
[2021-01-31] MEDS: Lisinopril 10 MG Tablet PO (09:42)
[2021-01-31] MEDS: Aspirin E.C. 81 MG Tablet PO (09:43)
[2021-01-31] MEDS: Multivitamins,Ther W-Minerals Tablet 1 TABLET PO (09:43)
[2021-01-31] MEDS: Digoxin 250 MCG Tablet PO (09:43)
[2021-01-31] MEDS: Spironolactone 25 MG Tablet PO (09:43)
[2021-01-31] MEDS: Carvedilol 25 MG Tablet PO (09:43)
[2021-01-31] MEDS: 0.9% Saline Lock 10 ML Syringe IV (09:57)
[2021-01-31] MEDS: levETIRAcetam 500 MG Tablet PO (11:01)
--- NOTE | 2021-01-31 11:12 | CASEMGMT ---
ALEKSEY Silva indicated patient and his would like patient to go to [facility] short term. BIJAL called [facility] in TCU and made referral. She has a meeting at 11a. She will look at referral when she is out of meeting and get back with BIJAL. BIJAL notified PHYSICIAN/OPHTHALMOLOGIST and RN. Plan: d/c to [facility] pending their acceptance Susanne PADILLA
[2021-01-31 11:16] LABS: Bedside Glucose 253 mg/dL (70-110)
--- NOTE | 2021-01-31 13:10 | CASEMGMT ---
Addendum entered by Susanne Zhang 01/31/21 15:12: SW notified patient's to bring in a copy of patient's COVID vaccine card. They will want a copy of this in TCU. Susanne PADILLA Original Note: BIJAL spoke with [facility] and they can take patient in TCU today. SW notified physician and PERCUSSION TEACHER. SW notified patient's via phone and also notified RN. Await orders. Plan: d/c to [facility] Susanne PADILLA
--- NOTE | 2021-01-31 13:36 | PCM.TXEXTCAR ---
Documented by User: Shira Atwood PROGRAM DIRECTOR SUBSTANCE ABUSE, PROGRAM DIRECTOR SUBSTANCE ABUSE-C 01/31/21 13:47 Diet 01/30/21 16:29 Diet: Carbohydrate Controlled Is pt able to select menu?: No Routine Orders/Code Status Enema Type: Fleetz Enema Frequency: Daily PRN Suppository Type: Dulcolax 10mg Suppository Frequency: Daily PRN Routine Lab Work: - (Weekly CBC, BMP) Suggestions for Active Care Change Position every (hours): 2 Times a day to sit in chair: 3 Therapies Physical Therapy: Eval and Treat Occupational Therapy: Eval and Treat Speech Therapy: Eval and Treat Problem/Diagnosis (1) New onset seizure: Status: Acute Allergies/Procedures Done in Hospital Allergies No Known Allergies Allergy (Verified 01/30/21 00:33) Procedures: Electroencephalogram Type of Care/Length of Stay Estimated LOS: Convalescent Care Less Than 30 days Type of Care Needed: Skilled Rehab Potential: Fair Prognosis: Fair Additional Orders/Day of Discharge H&P will serve as current which was dated: 01/30/21 Day of Discharge: 01/31/21 Dietary and Speech Recommendations Dietitian Recommendations/Changes: Continue carbohydrate-controlled diet as intake established. ONS only if intake at meals inadequate. Diet education to pt and family prior to d/c if plans are for homegoing. Discharge Plan Admission Admit Date/Time: 01/30/21 03:28 Primary Reason for Your Visit: Seizure Attending Provider: Gianna Perla Primary Care Provider: Parveen Hylton III Discharge Orders/Prescriptions Prescriptions: New Lantus Solostar U-100 Insulin 100 unit/mL (3 mL) Insulin Pen 20 unit subcut QHS Qty: 0 RF: 0 levetiracetam 500 mg Tablet 500 mg PO BID Qty: 0 RF: 0 insulin lispro [Humalog KwikPen Insulin] 100 unit/mL Insulin Pen See Protocol unit subcut ACHS Qty: 0 RF: 0 Continued carvedilol 12.5 mg tablet 25 mg PO BID RF: 0 digoxin [Lanoxin] 250 mcg (0.25 mg) Tablet 250 mcg PO DAILY RF: 0 aspirin 81 mg Tablet,Delayed Release (Dr/Ec) 81 mg PO DAILY RF: 0 spironolactone [Aldactone] 25 mg Tablet 25 mg PO DAILY RF: 0 lisinopril 10 mg tablet 10 mg PO BID RF: 0 colestipol 5 gram packet 5 g PO TID RF: 0 omega-3 fatty acids-vitamin E 1,000 mg Capsule 1 cap PO BID RF: 0 rosuvastatin 20 mg tablet 20 mg PO DAILY RF: 0 pa-mke-ZC-Up-Xg-mjwibqh-lutein 0.4-162-18 mg Tablet 1 tab PO DAILY RF: 0 icosapent ethyl [Vascepa] 1 gram capsule 2 g PO BID RF: 0 Referrals / Follow Up: Parveen Hylton III, MD [Primary Care Provider] - In 1 Week Manan Martinez MD [STAFF PHYSICIAN] - Within 2 Weeks Disposition Disposition (needs filled in before D/C Order can be placed): Home, Self Care Documented by User: Dr. Gianna Perla MD 01/31/21 14:41 Routine Orders/Code Status Routine Lab Work: CBC (within 3 days) and BMP (within 3 days) Therapies Weight Bearing: Weight bearing as tolerated Physical Therapy: Eval and Treat Occupational Therapy: Eval and Treat Allergies/Procedures Done in Hospital Allergies No Known Allergies Allergy (Verified 01/30/21 00:33) Type of Care/Length of Stay Estimated LOS: Convalescent Care Less Than 30 days Type of Care Needed: Skilled Rehab Potential: Good Prognosis: Good Additional Orders/Day of Discharge Day of Discharge: 01/31/21 Discharge Plan Admission Admit Date/Time: 01/30/21 03:28 Primary Reason for Your Visit: Seizure Attending Provider: Gianna Perla Primary Care Provider: Parveen Hylton III Discharge Orders/Prescriptions Prescriptions: New Lantus Solostar U-100 Insulin 100 unit/mL (3 mL) Insulin Pen 20 unit subcut QHS Qty: 0 RF: 0 levetiracetam 500 mg Tablet 500 mg PO BID Qty: 0 RF: 0 insulin lispro [Humalog KwikPen Insulin] 100 unit/mL Insulin Pen See Protocol unit subcut ACHS Qty: 0 RF: 0 Continued carvedilol 12.5 mg tablet 25 mg PO BID RF: 0 digoxin [Lanoxin] 250 mcg (0.25 mg) Tablet 250 mcg PO DAILY RF: 0 aspirin 81 mg Tablet,Delayed Release (Dr/Ec) 81 mg PO DAILY RF: 0 spironolactone [Aldactone] 25 mg Tablet 25 mg PO DAILY RF: 0 lisinopril 10 mg tablet 10 mg PO BID RF: 0 colestipol 5 gram packet 5 g PO TID RF: 0 omega-3 fatty acids-vitamin E 1,000 mg Capsule 1 cap PO BID RF: 0 rosuvastatin 20 mg tablet 20 mg PO DAILY RF: 0 kg-bva-LY-Fn-Gi-pvwhgyo-lutein 0.4-162-18 mg Tablet 1 tab PO DAILY RF: 0 icosapent ethyl [Vascepa] 1 gram capsule 2 g PO BID RF: 0 Referrals / Follow Up: Parveen Hylton III, MD [Primary Care Provider] - In 1 Week Manan Martinez MD [STAFF PHYSICIAN] - Within 2 Weeks Disposition Disposition (needs filled in before D/C Order can be placed): Home, Self Care
--- NOTE | 2021-01-31 13:51 | DS.PCM_ITS ---
Documented by User: Shira Atwood NP, ELEVATOR SUPERVISOR-C 01/31/21 13:57 Providers Date of Admission: 01/30/21 Date of Discharge: 01/31/21 Primary Care Physician: Dr. Parveen Hylton III, MD Reason For Visit: NEW ONSET SEIZURE Diagnosis Discharge Diagnosis (1) New onset seizure: Status: Acute Code(s): R56.9 - Unspecified convulsions Medications at Discharge Home Medications aspirin 81 mg PO DAILY 01/30/21 carvedilol 25 mg PO BID 01/30/21 colestipol 5 g PO TID 01/30/21 digoxin [Lanoxin] 250 mcg PO DAILY 01/30/21 icosapent ethyl [Vascepa] 2 g PO BID 01/30/21 lisinopril 10 mg PO BID 01/30/21 wm-opg-OJ-Me-Fb-fuybhnz-lutein 1 tab PO DAILY 01/30/21 omega-3 fatty acids-vitamin E 1 cap PO BID 01/30/21 rosuvastatin 20 mg PO DAILY 01/30/21 spironolactone [Aldactone] 25 mg PO DAILY 01/30/21 insulin glargine [Lantus Solostar U-100 Insulin] 20 unit SUBCUT QHS #0 ml 01/31/21 insulin lispro [Humalog KwikPen Insulin] See Protocol SUBCUT ACHS #0 ml 01/31/21 levetiracetam 500 mg PO BID #0 tab 01/31/21 Hospital Course Operations None Procedures Electroencephalogram Summary of Care Provided Minutes Spent on Discharge: 35 Hospital Course: Patient is a 85-year-old male admitted 01/30/2021 due to new ons et seizure. 1. New onset seizure- IV keppra during admission. Brain CT normal. Unable to obtain MRI due to pacemaker incompatible. Repeat brain CT in 24 hours with and without contrast shows chronic changes. Recommend outpatient EEG. Continue Keppra 500 mg twice daily. Follow-up with neurology in 2 weeks. 2. Acute metabolic encephalopathy, secondary to #1-improved. 3. New onset type 2 diabetes mellitus-hemoglobin A1c 10.2%. Accu-Cheks with sliding scale insulin. Initiated on Lantus 20 units nightly. Recommend addition of oral regimen following discharge from TCU. Patient will also need glucometer and testing supplies. Recommend continuous patient education at TCU regarding self administration of insulin and glucose checking. 4. Difficulty swallowing- reports this has been ongoing, speech therapy consult. Continue speech therapy eval at TCU. 5. Gait imbalance- ongoing for several months. PT/OT. TCU at discharge for rehab. 6. Hyperlipidemia/hypertriglyceridemia-on a colestipol, vascepa, statin. 7. Hypertension-stable, on carvedilol, lisinopril, Aldactone. Physical Exam Const alert, oriented x3 and no apparent distress Orientation / Consciousness: awake, oriented to person, oriented to place and oriented to time HEENT normocephalic and moist oral mucous membranes Eyes PERRL, EOMs intact bilaterally and conjunctivae normal Neck no lymphadenopathy Resp normal respiratory effort and clear to auscultation bilaterally Cardio regular rate, regular rhythm and no murmurs Peripheral Pulses: pulses 2+ throughout GI normal to inspection, nondistended, normoactive bowel sounds, non-tender and non-distended Extremity normal to inspection Skin no rashes or lesions noted Lesions: no lesions Rashes: no rashes Trauma: no lacerations or abrasions Neuro CN's II-XII intact bilaterally, no focal motor deficits, no sensory deficits noted and deep tendon reflexes 2+ bilaterally Psych mental status grossly normal and affect normal Patient seen and examined prior to discharge. Physical assessment as noted above. Patient is stable for discharge with follow up recommendations as noted above. This patient was seen by ADRIANO Cheatham under the supervision of Dr. Perla. Weight / BMI Weight Weight: 148 lb 9.465 oz Body Mass Index (BMI) 21.3 ABG / Lab / Microbiology Data Result Diagrams: 01/30/21 04:50 01/31/21 05:48 Laboratory: Laboratory Results - last 24 hr 01/30/21 16:25: POC Glucose 237 H 01/30/21 22:41: POC Glucose 231 H 01/31/21 05:48: Sodium 137, Potassium 3.6, Chloride 105, Carbon Dioxide 22.0, Anion Gap 10, BUN 19 H, Creatinine 1.15, Estim Creat Clear Calc 44.77, Est GFR (MDRD) Af Amer 78, Est GFR (MDRD) Non-Af 64, BUN/Creatinine Ratio 16.5, Glucose 189 H, Calcium 7.9 L 01/31/21 06:38: POC Glucose 213 H 01/31/21 11:02: POC Glucose 253 H Radiography Diagnostic Testing: Radiology Impression Brain CT 01/31/21 05:55 IMPRESSION: Chronic involutional changes of the brain. Electronically Signed: Ankush Hernandez MD at 10:09 EDT , Service support , Meaningful Use Info Meaningful Use Diagnoses (Choose all that apply): None applicable Discharge Plan Admission Admit Date/Time: 01/30/21 03:28 Primary Reason for Your Visit: Seizure Attending Provider: Gianna Perla Primary Care Provider: Parveen Hylton III Discharge Orders/Prescriptions Prescriptions: New Lantus Solostar U-100 Insulin 100 unit/mL (3 mL) Insulin Pen 20 unit subcut QHS Qty: 0 RF: 0 levetiracetam 500 mg Tablet 500 mg PO BID Qty: 0 RF: 0 insulin lispro [Humalog KwikPen Insulin] 100 unit/mL Insulin Pen See Protocol unit subcut ACHS Qty: 0 RF: 0 Continued carvedilol 12.5 mg tablet 25 mg PO BID RF: 0 digoxin [Lanoxin] 250 mcg (0.25 mg) Tablet 250 mcg PO DAILY RF: 0 aspirin 81 mg Tablet,Delayed Release (Dr/Ec) 81 mg PO DAILY RF: 0 spironolactone [Aldactone] 25 mg Tablet 25 mg PO DAILY RF: 0 lisinopril 10 mg tablet 10 mg PO BID RF: 0 colestipol 5 gram packet 5 g PO TID RF: 0 omega-3 fatty acids-vitamin E 1,000 mg Capsule 1 cap PO BID RF: 0 rosuvastatin 20 mg tablet 20 mg PO DAILY RF: 0 gm-coi-JX-Ht-Mj-hdmwfza-lutein 0.4-162-18 mg Tablet 1 tab PO DAILY RF: 0 icosapent ethyl [Vascepa] 1 gram capsule 2 g PO BID RF: 0 Referrals / Follow Up: Parveen Hylton III, MD [Primary Care Provider] - In 1 Week Manan Martinez MD [STAFF PHYSICIAN] - Within 2 Weeks Disposition Disposition (needs filled in before D/C Order can be placed): Home, Self Care Documented by User: Dr. Gianna Perla MD 01/31/21 14:46 Providers Date of Admission: 01/30/21 Reason For Visit: NEW ONSET SEIZURE Medications at Discharge Home Medications aspirin 81 mg PO DAILY 01/30/21 carvedilol 25 mg PO BID 01/30/21 colestipol 5 g PO TID 01/30/21 digoxin [Lanoxin] 250 mcg PO DAILY 01/30/21 icosapent ethyl [Vascepa] 2 g PO BID 01/30/21 lisinopril 10 mg PO BID 01/30/21 rg-uzq-HD-Mb-Ye-zgtwqzn-lutein 1 tab PO DAILY 01/30/21 omega-3 fatty acids-vitamin E 1 cap PO BID 01/30/21 rosuvastatin 20 mg PO DAILY 01/30/21 spironolactone [Aldactone] 25 mg PO DAILY 01/30/21 insulin glargine [Lantus Solostar U-100 Insulin] 20 unit SUBCUT QHS #0 ml 01/31/21 insulin lispro [Humalog KwikPen Insulin] See Protocol SUBCUT ACHS #0 ml 01/31/21 levetiracetam 500 mg PO BID #0 tab 01/31/21 ABG / Lab / Microbiology Data Result Diagrams: 01/30/21 04:50 01/31/21 05:48 Discharge Plan Admission Admit Date/Time: 01/30/21 03:28 Primary Reason for Your Visit: Seizure Attending Provider: Gianna Perla Primary Care Provider: Parveen Hylton III Discharge Orders/Prescriptions Prescriptions: New Lantus Solostar U-100 Insulin 100 unit/mL (3 mL) Insulin Pen 20 unit subcut QHS Qty: 0 RF: 0 levetiracetam 500 mg Tablet 500 mg PO BID Qty: 0 RF: 0 insulin lispro [Humalog KwikPen Insulin] 100 unit/mL Insulin Pen See Protocol unit subcut ACHS Qty: 0 RF: 0 Continued carvedilol 12.5 mg tablet 25 mg PO BID RF: 0 digoxin [Lanoxin] 250 mcg (0.25 mg) Tablet 250 mcg PO DAILY RF: 0 aspirin 81 mg Tablet,Delayed Release (Dr/Ec) 81 mg PO DAILY RF: 0 spironolactone [Aldactone] 25 mg Tablet 25 mg PO DAILY RF: 0 lisinopril 10 mg tablet 10 mg PO BID RF: 0 colestipol 5 gram packet 5 g PO TID RF: 0 omega-3 fatty acids-vitamin E 1,000 mg Capsule 1 cap PO BID RF: 0 rosuvastatin 20 mg tablet 20 mg PO DAILY RF: 0 pa-wdq-YE-Yp-Gz-agizokg-lutein 0.4-162-18 mg Tablet 1 tab PO DAILY RF: 0 icosapent ethyl [Vascepa] 1 gram capsule 2 g PO BID RF: 0 Referrals / Follow Up: Parveen Hylton III, MD [Primary Care Provider] - In 1 Week Manan Martinez MD [STAFF PHYSICIAN] - Within 2 Weeks Disposition Disposition (needs filled in before D/C Order can be placed): Home, Self Care Charges/Coding Addendum Addendum: This patient was seen in conjunction with Shira Atwood. I have independently interviewed and examined the patient and reviewed pertinent historical, laboratory, and other data. I have reviewed her note and concur with her documentation 85-year-old male with extensive past medical history who comes in with altered mental status. Patient's family noticed that him was more confused. He had a tonic-clonic seizure at home. His work-up in the ED was unremarkable except for creatinine 1.47. His blood sugar was 397. Patient was found to have HbA1c of 10.7. He was started on insulin. Patient was admitted as new onset seizures. He was started on IV Keppra. He was seen by tele-neurology recommended to continue on IV Keppra. He could not get an MRI of the brain because he had ICD. Patient had a repeat CT scan that showed no acute infarct. He was seen by physical therapy and discharged to senior care facility for subacute care. On the day of discharge, patient was seen and examined. He was much awake and alert. He was less confused. Physical Exam: Gen: Comfortable, not pale, not jaundiced CVS:HS I +II, regular, no murmurs RESP:CTA GI: BS present and normal, soft, nontender, no palpable organs EXT:No edema Visit Charges Inpatient E&M: 05599 Disch Hosp
--- NOTE | 2021-01-31 14:01 | PHA.DC.MR ---
Pharmacy Service has performed discharge medication reconciliation for this patient. The patient's discharge medication list was reviewed for discrepancies and discrepancies were resolved. Home Medications aspirin 81 mg PO DAILY 01/30/21 carvedilol 25 mg PO BID 01/30/21 colestipol 5 g PO TID 01/30/21 digoxin [Lanoxin] 250 mcg PO DAILY 01/30/21 icosapent ethyl [Vascepa] 2 g PO BID 01/30/21 lisinopril 10 mg PO BID 01/30/21 jp-pdv-HP-Rh-Fl-elxloti-lutein 1 tab PO DAILY 01/30/21 omega-3 fatty acids-vitamin E 1 cap PO BID 01/30/21 rosuvastatin 20 mg PO DAILY 01/30/21 spironolactone [Aldactone] 25 mg PO DAILY 01/30/21 insulin glargine [Lantus Solostar U-100 Insulin] 20 unit SUBCUT QHS #0 ml 01/31/21 insulin lispro [Humalog KwikPen Insulin] See Protocol SUBCUT ACHS #0 ml 01/31/21 levetiracetam 500 mg PO BID #0 tab 01/31/21
--- NOTE | 2021-01-31 17:17 | NURSING ---
Report called to Gloria in TCU. Patient okay to transfer to TCU at 1830 per Gloria.
[2021-02-01 00:16] LABS: Bedside Glucose 203 mg/dL (70-110)
== END 2021-01-31 18:52 | disposition skilled nursing facility (03) | DRG 100 ==
LOC: ED 01-30 02:44 → PCU 01-30 03:31
PROVIDERS: Nurse Practitioner Family; Admitting Provider Student in an Organized Health Care Education/Training Program; Emergency Provider Emergency Medicine; PCP Family Medicine; Visit Provider Internal Medicine
DX: R56.9 Unspecified convulsions (principal); G93.41 Metabolic encephalopathy; E87.1 Hypo-osmolality and hyponatremia; R13.10 Dysphagia, unspecified; R26.89 Other abnormalities of gait and mobility; E78.5 Hyperlipidemia, unspecified; E11.65 Type 2 diabetes mellitus with hyperglycemia; I10 Essential (primary) hypertension; I25.2 Old myocardial infarction; Z95.1 Presence of aortocoronary bypass graft; Z86.74 Personal history of sudden cardiac arrest; Z95.810 Presence of automatic (implantable) cardiac defibrillator; Z79.899 Other long term (current) drug therapy; Z79.82 Long term (current) use of aspirin
CPT/HCPCS: 36415; 70450; 70470; 71045; 80048; 81001; 82962; 83036; 83735; 85025; 87426; 92526; 92610; 93005; 97110; 97162; 97166; 97530; 97535; 99285; J7030; Q9967; A4216

== ENCOUNTER 2021-01-31 19:01 | Inpatient (IN) | payer MEDICARE, OTHER, SELFPAY ==
[2021-01-30 04:22] VITALS: BMI 21.3
[2021-01-31 19:18] VITALS: BP 136/88; PULSE 67; RESP 18; TEMP 36.9; O2SAT 96
[2021-01-31 21:50] LABS: Bedside Glucose 287 mg/dL (70-110)
[2021-01-31] MEDS: Carvedilol 25 MG Tablet PO (21:55)
[2021-01-31] MEDS: levETIRAcetam 500 MG Tablet PO (21:55)
[2021-01-31] MEDS: Atorvastatin Calcium 40 MG Tablet PO (21:56)
[2021-01-31] MEDS: Lisinopril 10 MG Tablet PO (21:59)
[2021-01-31] MEDS: Insulin Lispro 100 UNIT/ML INSULN.PEN SC (22:05)
--- NOTE | 2021-01-31 22:36 | HP.PCM_ITS ---
HPI - General General Date of Admission: 01/31/21 HPI Narrative 01/17/2021 Echo showed severe segmental systolic dysfunction. EF 25%. Right ventricular systolic pressure 23mm HG. Negative diastolic dysfunction. 01/30/2021 AMBAR LAMB, is a 85 Male who presents to [facility] Emergency Department with confusion. Declining mental status x 1 week, thought he had seizure (shaking, eyes rolled back). Acute seizure in emergency department, Ativan 1MG given, loaded with Keppra, patient post ictal. UA negative, Chest X-ray negative, CT head negative. 01/30/2021 Admit to Hospital. Keppra 500MG IV twice daily for new onset seizure. Consult Tele-neurology for seizure. Attempt MRI brain, pacemaker/defibrillator may not be compatible. Glucose 397, check A1c, possibly secondary to seizure. 01/30/2021 Tele-neurology recommended MRI brain if possible or contrast CT brain. Continue Keppra 500MG twice daily, then outpatient EEG. 01/30/2021 Confusion improved. A1c 10.2%, start Lantus insulin, sliding scale insulin. Speech Therapy for dysphagia. 01/31/[address] brain with contrast. Needs EEG. Needs Neurology follow up in 2 weeks. Continue Keppra 500MG twice daily for seizure disorder. Needs treatment of new onset Diabetes Mellitus II. 01/31/2021 Admit to TCU with debility, here for rehabilitation, strengthening, prior to discharge home with . [facility] Medical History (Updated 01/31/21 @ 22:[address] aDvid Wright MD) High cholesterol Hypertension ICD (implantable cardioverter-defibrillator) in place Myocardial infarct Sudden cardiac arrest Home Medications aspirin 81 mg PO DAILY 01/30/21 [History Last Taken 01/31/21 09:43] carvedilol 25 mg PO BID 01/30/21 [History Last Taken 01/31/21 09:43] colestipol 5 g PO TID 01/30/21 [History Last Taken Unknown] digoxin [Lanoxin] 250 mcg PO DAILY 01/30/21 [History Last Taken 01/31/21 09:43] icosapent ethyl [Vascepa] 2 g PO BID 01/30/21 [History Last Taken Unknown] lisinopril 10 mg PO BID 01/30/21 [History Last Taken 01/31/21 09:42] bj-jae-UR-Gt-Ln-jovvcbu-lutein 1 tab PO DAILY 01/30/21 [History Last Taken 01/31/21 09:43] omega-3 fatty acids-vitamin E 1 cap PO BID 01/30/21 [History Last Taken Unknown] rosuvastatin 20 mg PO DAILY 01/30/21 [History Last Taken 01/30/21 22:44] spironolactone [Aldactone] 25 mg PO DAILY 01/30/21 [History Last Taken 01/31/21 09:43] insulin glargine [Lantus Solostar U-100 Insulin] 20 unit SUBCUT QHS 01/31/21 [History Last Taken 01/30/21 22:45] insulin lispro [Humalog KwikPen Insulin] See Protocol SUBCUT ACHS 01/31/21 [History Last Taken 01/31/21 16:21] levetiracetam 500 mg PO BID 01/31/21 [History Last Taken 01/31/21 11:01] Allergy/AdvReac Type Severity Reaction Status Date / Time No Known Allergies Allergy Verified 01/30/21 00:33 Surgical History Hx of CABG Social History (Updated 01/31/21 @ 22:[address] David Wright MD) household members: spouse Smoking Status: Never smoker ROS Constitutional Constitutional: Denies chills, fever(s) or weight gain ENT HEENT: Denies headache(s), nasal congestion or nasal discharge Cardiovascular Cardiovascular: Denies chest pain or palpitations Respiratory/Chest Respiratory/Chest: Denies cough, excessive phlegm production or shortness of breath with exertion Gastrointestinal Gastrointestinal: Denies abdominal pain, nausea or vomiting Genitourinary Genitourinary: Denies dysuria Musculoskeletal Musculoskeletal: Denies joint pain or joint swelling Integumentary Integumentary: Denies rash or wounds Neurologic Neurologic: Denies focal weakness, numbness or tingling Psychiatric Psychiatric: Reports auditory hallucinations; Denies anxiety, depression, homicidal ideation or suicidal ideation Vital Signs Vital Signs Vital Signs: 01/31/21 19:18 Temperature 98.4 F Temperature Source Oral Pulse Rate 67 Respiratory Rate 18 Blood Pressure 136/88 H Blood Pressure Mean 104 Blood Pressure Source Monitor Blood Pressure Position Semi-Fowlers Blood Pressure Location Left Arm Pulse Ox 96 Oxygen Delivery Method Room Air Weight Body Mass Index (BMI) 21.3 Physical Exam Const alert and oriented x3 General Appearance: cooperative HEENT normocephalic Eyes PERRL and EOMs intact bilaterally Neck supple, no JVD and no carotid bruits Resp normal respiratory effort, normal air movement and clear to auscultation bilaterally Cardio regular rate and regular rhythm GI normal to inspection, nondistended, normoactive bowel sounds, non-tender and non-distended Extremity normal capillary refill General Extremity: Negative for edema Skin no rashes or lesions noted General Skin Exam: no breakdown Neuro Neuro Narrative: Confused, sleepy. Psych affect normal Appearance: appropriate Results Lab / Micro Data Result Diagrams: 02/01/21 05:35 02/01/21 05:35 Labs: Laboratory Results - last 24 hr 01/31/21 21:43: POC Glucose 287 H Assessment & Plan Assessment/Plan (1) New onset seizure: (2) New onset type 2 diabetes mellitus: (3) Debility: (4) Encephalopathy: (5) Myocardial infarction: (6) Sudden cardiac arrest: (7) Coronary artery disease: (8) Hypertension: (9) Hyperlipidemia: (10) Chronic systolic congestive heart failure: PLAN: 85 year old male with below past medical history hospitalized for acute encephalopathy secondary to new onset seizure disorder, complicated by new onset diabetes mellitus, dysphagia, admitted to TCU with debility, here for rehabilitation, strengthening, prior to discharge home with . * Debility - PT/OT. * Dysphagia - ST. * Pain - Tylenol 1000MG Q6H PRN pain (1-10). * Bowel - Senna/colace 1 tablet twice daily, Dulcolax 10MG daily PRN. * Adult immunization - Administer Prevnar 13, Pneumovax 23, Fluzone, COVID19 vaccine as appropriate. * DVT prophylaxis - Lovenox 40MG sc daily. * Coronary artery disease - Coreg 25MG twice daily, Aspirin 81MG daily. * Hyperlipidemia - Atorvastatin 40MG QHS. * Chronic systolic congestive heart failure EF 25% - Coreg 25MG twice daily, Lisinopril 10MG twice daily, Digoxin 250MCG daily, Aldactone 25MG daily, consider Entresto. * Diabetes Mellitus II - Lantus 20 units QHS, monitor blood sugars. * Seizure disorder - Keppra 500MG twice daily, order CT head with contrast, order EEG, schedule appt with Dr. Martinez in 2 weeks.
[2021-01-31 23:50] VITALS: BMI 17.1
[2021-02-01] VITALS: PULSE 69; RESP 14
--- NOTE | 2021-02-01 02:01 | NURSING ---
Pt arrived approx 7pm. No family with him. Awake and alert. No c/o pain. Oriented to room. Skin assess done. Mir legs dry and flakey. Otherwise neg assess. States he has had his vaccines and card is in car.
--- NOTE | 2021-02-01 02:07 | NURSING ---
Pt attempting to get out of bed and walk around. Brought out to nurses station for awhile. Back to bed with bed alarm
[2021-02-01] MEDS: Digoxin 250 MCG Tablet PO (04:57)
[2021-02-01] MEDS: levETIRAcetam 500 MG Tablet PO ×2 (04:57→18:03)
[2021-02-01] MEDS: Spironolactone 25 MG Tablet PO (04:57)
[2021-02-01] MEDS: Carvedilol 25 MG Tablet PO ×2 (04:57→18:03)
[2021-02-01] MEDS: Enoxaparin 40 MG/0.4 ML Syringe SC (04:58)
[2021-02-01] MEDS: Senna/Docusate Sodium 1 Tablet PO ×2 (04:58→18:04)
[2021-02-01] MEDS: Lisinopril 10 MG Tablet PO ×2 (04:58→18:03)
[2021-02-01 05:44] LABS: Absolute Lymphocyte Count 3.15 X10^3/uL (0.83-4.51); Absolute Neutrophil Count 3.6 X10^3/uL (2.0-7.7); Basophil# 0.03 X10^3/uL; Basophil% 0.4 % (0-1); Eosinophil# 0.12 X10^3/uL; Eosinophils% 1.6 % (0-5); Hematocrit 34.5 % (40-54); Hemoglobin 12.1 g/dL (13.0-16.5); Lymphocyte # 3.15 X10^3/ul (0.83-4.51); Lymphocyte % 41.7 % (19-41); Mean Corp Hgb Conc 35.1 g/dL (32-36); Mean Corpuscular Hgb 32.7 pg (27.0-32.0); Mean Corpuscular Volume 93.2 fL (80-94); Mean Platelet Vol. 11.1 fl (6.2-12.0); Monocyte# 0.62 X10^3/uL; Monocyte% 8.2 % (0-10); NRBC Flagged by Analyzer 0 % (0-5); Neutrophil # 3.61 X10^3/uL (2.7-7.7); Neutrophil % 47.7 % (47-70); Platelet Count 155 K/mm3 (150-450); RBC Distribution Width CV 11.9 % (11.6-14.6); RBC Distribution Width SD 41.1 fl (35.1-43.9); White Blood Count 7.6 K/mm3 (4.4-11.0)
[2021-02-01 06:02] LABS: Anion Gap 7 (5-15); BUN 26 mg/dL (7-18); BUN/Creat Ratio 21.7 RATIO (10-20); Calcium,Total 8.3 mg/dL (8.5-10.1); Chloride 103 mmol/L (98-107); EST Glomerular Filtration Rate 61 mL/min (>60); Est Glom Filt Rate - Afr Amer 74 mL/min (>60); Glucose 251 mg/dL (74-106); Potassium 3.7 mmol/L (3.5-5.1); Sodium Level 136 mmol/L (136-145)
[2021-02-01 07:07] VITALS: BP 122/60; PULSE 70; RESP 14; TEMP 36.2
[2021-02-01 07:50] LABS: Bedside Glucose 266 mg/dL (70-110)
--- NOTE | 2021-02-01 07:51 | NURSING ---
Pt refused to allow us to remove glasses while he slept. Patient noted to have a fresh abrasion on left side of nose this morning, glasses where underneath him. Patient also noted to be inappropriate with female staff this shift. Reminded pt that that was inappropriate and that his would not appreciate that behavior. Pt stopped and said he was sorry. But continued when the next staff member came in.
[2021-02-01] MEDS: Aspirin E.C. 81 MG Tablet PO (07:59)
[2021-02-01 09:08] LABS: Basophil# 0.02 X10^3/uL; Basophil% 0.3 % (0-1); Eosinophil# 0.07 X10^3/uL; Hematocrit 35.6 % (40-54); Hemoglobin 12.3 g/dL (13.0-16.5); Lymphocyte % 31.2 % (19-41); Mean Corp Hgb Conc 34.6 g/dL (32-36); Mean Corpuscular Hgb 32.5 pg (27.0-32.0); Mean Corpuscular Volume 93.9 fL (80-94); Mean Platelet Vol. 11.4 fl (6.2-12.0); Monocyte% 7.4 % (0-10); NRBC Flagged by Analyzer 0 % (0-5); Neutrophil # 4.01 X10^3/uL (2.7-7.7); Neutrophil % 59.7 % (47-70); Platelet Count 142 K/mm3 (150-450); RBC Distribution Width SD 41.3 fl (35.1-43.9); Red Blood Count 3.79 M/mm3 (4.6-6.2); White Blood Count 6.7 K/mm3 (4.4-11.0)
[2021-02-01 09:21] LABS: Anion Gap 9 (5-15); BUN 25 mg/dL (7-18); Calcium,Total 8.6 mg/dL (8.5-10.1); Chloride 103 mmol/L (98-107); Creatinine, Serum 1.25 mg/dL (0.70-1.30); EST Glomerular Filtration Rate 58 mL/min (>60); Est Glom Filt Rate - Afr Amer 71 mL/min (>60); Estimated Creatinine Clearance 42.04 ml/min; Glucose 388 mg/dL (74-106); Sodium Level 134 mmol/L (136-145)
[2021-02-01 10:46] LABS: Bedside Glucose 398 mg/dL (70-110)
--- NOTE | 2021-02-01 11:00 | NURSING ---
Called Dr. Martinez's office for a Neurology consult First available appt is 03/21/21 @ 9:00am. Steward[facility] stated that she can put him on a list to be seen earlier if available they will send paper work to pt's home that can be filled out prior to appt. Will update .
[2021-02-01] MEDS: Insulin Lispro 100 UNIT/ML INSULN.PEN 7 UNIT SC ×2 (11:29→18:03)
[2021-02-01 12:30] VITALS: RESP 16
--- NOTE | 2021-02-01 12:50 | CASEMGMT ---
Social Work Referral for Palliative Care per Dr. Wright/screening tool results made. Telephone call to [facility], voicemail left on confidential voicemail with referral information. Yany Barnes MSW, VALERIE-S
--- NOTE | 2021-02-01 12:57 | CASEMGMT ---
Social Work SW met with pt for initial assessment. SW discussed code status with pt and assisted pt with completing MOLST form. Pt wishing to be full code with intubation and feeding tube. RN and physican notified of pt wishes. Physician requesting Palliative referral. Referral made. SW explained medicare benefit and encouraged pt to contact secondary insurance to ensure copay coverage. Pt is hopeful pt will return home with his at time of discharge and to return to independence. SW to follow. ELIAS Ulrich
[2021-02-01 14:13] VITALS: BP 121/67; PULSE 82; RESP 16; TEMP 36.3; O2SAT 92
--- NOTE | 2021-02-01 15:35 | PHA.CONS_ITS ---
Progress Note - Pharmacy Subjective: TCU Admission Objective: Allergies No Known Allergies Allergy (Verified 01/30/21 00:33) Current Medications Generic Name Dose Route Start Last Admin Trade Name Ananya PRN Reason Stop Dose Admin Acetaminophen 1,000 mg 01/31/21 22:53 Acetaminophen 500 Mg Tablet PO Q6H PRN PRN Pain Score 1-10 Aspirin 81 mg 02/01/21 08:00 02/01/21 07:59 Aspirin E.C. 81 Mg Tablet PO 81 mg DAILYCM AMEENA Administration Atorvastatin Calcium 40 mg 01/31/21 22:00 01/31/21 21:56 Atorvastatin Calcium 40 Mg Tablet PO 40 mg QHS [facility] Administration Bisacodyl 10 mg 01/31/21 22:53 Bisacodyl 5 Mg Tablet PO DAILY PRN Constipation Carvedilol 25 mg 01/31/21 20:45 02/01/21 04:57 Carvedilol 25 Mg Tablet PO 25 mg BID AMEENA Administration Digoxin 125 mcg 02/02/21 06:00 Digoxin 125 Mcg Tablet PO DAILY [facility] Enoxaparin Sodium 40 mg 02/01/21 06:00 02/01/21 04:58 Enoxaparin 40 Mg/0.4 Ml Syringe SC 40 mg DAILY@0600 AMEENA Administration Insulin Glargine 20 units 01/31/21 22:00 01/31/21 21:57 Insulin Glargine 100 Units/Ml Pen SC 20 units QHS AMEENA Administration Insulin Human Lispro 7 unit 02/01/21 11:45 02/01/21 11:29 Insulin Lispro 100 Unit/Ml Insuln.Pen SC 7 units TIDAC AMEENA Administration Levetiracetam 500 mg 01/31/21 20:45 02/01/21 04:57 Levetiracetam 500 Mg Tablet PO 500 mg BID AMEENA Administration Lisinopril 10 mg 01/31/21 20:30 02/01/21 04:58 Lisinopril 10 Mg Tablet PO 10 mg BID AMEENA Administration Senna/Docusate Sodium 1 tablet 02/01/21 06:00 02/01/21 04:58 Senna/Docusate Sodium 1 Tablet PO 1 tablet BID AMEENA Administration Spironolactone 25 mg 02/01/21 06:00 02/01/21 04:57 Spironolactone 25 Mg Tablet PO 25 mg DAILY AMEENA Administration Tuberculin PPD 0.1 ml 02/02/21 10:00 Tuberculin,Purif.Prot.Deriv. 50 Tu/Ml Vial ID 02/02/21 10:01 X1 ONE Tuberculin PPD 0.1 ml 02/09/21 10:00 Tuberculin,Purif.Prot.Deriv. 50 Tu/Ml Vial ID 02/09/21 10:01 X1 ONE Problem List (Last Updated 01/31/21 @ 22:[address] David Wright MD) Chronic systolic congestive heart failure (Chronic) Hyperlipidemia (Acute) Hypertension (Chronic) Coronary artery disease (Acute) Sudden cardiac arrest (Acute) Myocardial infarction (Acute) Encephalopathy (Acute) Debility (Acute) New onset type 2 diabetes mellitus (Acute) New onset seizure (Acute) Vital Signs Temp Pulse Resp BP Pulse Ox 97.3 F L 82 16 121/67 H 92 02/01/21 14:13 02/01/21 14:13 02/01/21 14:13 02/01/21 14:13 02/01/21 14:13 Oxygen Delivery Method Room Air Weight: 68.8 kg Body Mass Index (BMI) 17.1 Sodium 134 mmol/L (136-145) L 02/01/21 08:56 Potassium 4.0 mmol/L (3.5-5.1) 02/01/21 08:56 Chloride 103 mmol/L (98-107) 02/01/21 08:56 Carbon Dioxide 22.0 mmol/L (21.0-32.0) 02/01/21 08:56 Anion Gap 9 (5-15) 02/01/21 08:56 BUN 25 mg/dL (7-18) H 02/01/21 08:56 Creatinine 1.25 mg/dL (0.70-1.30) 02/01/21 08:56 Est GFR (MDRD) Af Amer 71 mL/min (>60) 02/01/21 08:56 Est GFR (MDRD) Non-Af 58 mL/min (>60) L 02/01/21 08:56 BUN/Creatinine Ratio 20.0 RATIO (10-20) 02/01/21 08:56 Glucose 388 mg/dL (74-106) H 02/01/21 08:56 Assessment/Plan: 1. Pain: acetaminophen 1000mg PO Q6H PRN pain 1-04/23. Please continue to monitor for increased pain and PRN usage. 2. DVT prophylaxis: enoxaparin 40mg SC daily. Please continue to monitor for S/S of bleeding, hemoglobin (last 12.3g/dL), platelets (last 142,000) and renal function. *3. CAD/CHF: carvedilol 25mg PO BID, aspirin 81mg PO DAILYCM, lisinopril 10mg PO BID, digoxin 125mcg PO daily, and spironolactone 25mg PO daily. Please continue to monitor HR (last 82), BP (last 121/67), S/S of bleeding, hemoglobin, potassium (last 4mmol/L), renal function, cough and vomiting. Patient has not had a digoxin level since 09/17/19. Dose was decreased this morning. Please consider ordering a digoxin level in the next few days to give time to adjust for decreased dose. Thanks. 4. Hyperlipidemia: atorvastatin 40mg PO QHS. Please continue to monitor lipid panel (last 04/22/20) and for muscle pain. 5. Diabetes mellitus II: insulin glargine 20units SC QHS and insulin lispro 7units SC TIDCM. Please continue to monitor hemoglobin A1c (last 10.2% 01/30/21), glucose (last 398mg/dL) and for S/S of hypo/hyperglycemia. 6. Seizure disorder: levetiracetam 500mg PO BID. Please continue to monitor for S/S of seizure and drowsiness. Psychotropic Medications: None Unnecessary Medications: None Bowel Regimen: senna/docusate 1T PO BID and bisacodyl 10mg PO daily PRN constipation. Please continue to monitor for constipation and PRN usage. Date of Note:: 02/01/21
[2021-02-01 19:21] LABS: Bedside Glucose 271 mg/dL (70-110)
--- NOTE | 2021-02-01 20:46 | NURSING ---
IV placement needed for CT scan with contrast. Spoke with patient, he is confused, says that it is after hours and he won't allow IV. Tried to re-orient him but he adamantly refuses IV. Updated Dr. Wright, order to re-attempt in the AM. CT updated.
--- NOTE | 2021-02-01 21:32 | NURSING ---
Attemtpted to administere HS meds at this time and patient is refusing. Patient states, it's after 6pm. Explain ed to patient that we do care 24 any
[2021-02-01 22:00] LABS: Bedside Glucose 252 mg/dL (70-110)
[2021-02-01] MEDS: Atorvastatin Calcium 40 MG Tablet PO (22:19)
[2021-02-02 06:31] LABS: Bedside Glucose 225 mg/dL (70-110)
[2021-02-02 06:42] VITALS: BP 107/70; PULSE 67; RESP 16; TEMP 36.7; O2SAT 96
[2021-02-02] MEDS: levETIRAcetam 500 MG Tablet PO ×2 (08:00→17:15)
[2021-02-02] MEDS: Aspirin E.C. 81 MG Tablet PO (08:00)
[2021-02-02 08:01] VITALS: BP 122/61; PULSE 66
[2021-02-02] MEDS: Carvedilol 25 MG Tablet PO ×2 (08:01→17:15)
[2021-02-02] MEDS: Spironolactone 25 MG Tablet PO (08:01)
[2021-02-02] MEDS: Digoxin 125 MCG Tablet PO (08:01)
[2021-02-02] MEDS: Lisinopril 10 MG Tablet PO ×2 (08:02→17:16)
[2021-02-02] MEDS: Enoxaparin 40 MG/0.4 ML Syringe SC (08:02)
[2021-02-02] MEDS: Senna/Docusate Sodium 1 Tablet PO ×2 (08:02→17:16)
[2021-02-02] MEDS: Insulin Lispro 100 UNIT/ML INSULN.PEN 7 UNIT SC ×3 (08:02→17:15)
[2021-02-02 10:00] VITALS: PULSE 74; RESP 16
--- NOTE | 2021-02-02 10:54 | CON.PCM.PA_ITS ---
Assessment & Plan Assessment/Plan (1) Debility: (2) New onset seizure: (3) New onset type 2 diabetes mellitus: (4) Coronary artery disease: QUALIFIERS: Coronary Disease-Associated Artery/Lesion type: [place] artery [place] vs. transplanted heart: [place] heart Associated angina: without angina Qualified Code(s): I25.10 - Atherosclerotic heart disease of [place] coronary artery without angina pectoris (5) Hypertension: QUALIFIERS: Hypertension type: unspecified Qualified Code(s): I10 - Essential (primary) hypertension (6) Hyperlipidemia: QUALIFIERS: Hyperlipidemia type: unspecified Qualified Code(s): E78.5 - Hyperlipidemia, unspecified (7) Chronic systolic congestive heart failure: (8) ICD (implantable cardioverter-defibrillator) in place: (9) Acute alteration in mental status: PLAN: 85-year-old male seen today for palliative care consultation in the TCU secondary to acute decline in function and new onset seizures. He is also newly diagnosed diabetic. 1. Debility and weakness: Improving with therapy, plan is to return home with his . 2. New onset seizures with acute AMS: His CT the brain showed no significant findings, no mass. He is to follow-up with neurology. Remains on Keppra. No seizures since in the ER. 3. New onset type II DM: Patient will require significant education as he does not seem to understand the disease process. He is asking if he will have to take medication when he goes home. Would be beneficial to do diabetic education when his is present as well. I suspect he will go home on Lantus and oral antiglycemic agents as well. He will need close follow-up as an outpatient. 4. Chronic systolic CHF/ICD/HTN/HLD/CAD: Complicates overall care, management, recovery, and prognosis. Management per attending/PCP. Thank you for the opportunity to participate in this patient's care, please do not hesitate to contact [facility] with any further questions or concerns. Palliative direct line is [phone]. We will follow up after discharge and will discuss palliative services further at that time. Greater than 50% of F2F visit dedicated to education and counseling of palliative care services, medications, comorbid conditions and potential assistance with management, and plan of care moving forward. Start time: 1054 End time: 1135 HPI Consult Data Date of Consult: 02/02/21 HPI Narrative HPI Narrative: AMBAR LAMB, is a 85 M, PMH as below, who presents to [facility] 01/30 with altered mental status and new onset seizures. He was treated with IV Keppra. Unable to obtain MRI of the brain secondary to ICD. He had a repeat CT scan that showed no acute infarct. Echocardiogram showed severe segmental systolic dysfunction, estimated EF of 25%, mild mitral valve prolapse, mild to moderate mitral and tricuspid valve insufficiency, mild diffuse aortic valve thickening, trivial PVI, RVSP estimated 23 mmHg. There was no evidence for diastolic dysfunction. He was eventually stabilized and discharged to the transitional care unit 01/31/2021 for rehab. Patient is being seen today for palliative care consultation for symptom management of shortness of breath in the setting of CHF. He has also had frequent unplanned hospitalizations and a significant decrease in ability to perform ADLs. He was also diagnosed with new onset type 2 diabetes mellitus with a hemoglobin A1c of 10.2%. He was initiated on Lantus and sliding scale insulin. Patient has also been having some difficulty with swallowing so speech therapy is working with him. Dr. Wright has ordered an EEG and CT the brain with contrast with recommended to follow-up with neurology in 2 weeks. His current dose of Keppra is 500 mg twice daily. Patient did have his CT the brain with and without contrast, showed mild cerebral atrophy with widening of the extra- axial spaces and ventricular dilation. There was no evidence of acute ischemic infarction. There is mucosal thickening along the inferior aspect of the right maxillary sinus. The EEG was performed this morning and results are pending. Patient lives at home with his in a two-story home, one-step to enter. He is typically independent at home. His Yari is his healthcare power of insurance defense attorney. DME in the home include shower chair, raised toilet, cane, walker, and grab bars. Uses [facility] for pharmacy and follows with [facility]. He does not currently have a PCP due to Dr. Concetta landis tiring. He will need to obtain a new PCP if he decides to pursue palliative care. Plan is for patient to return home with his . Patient denies any shortness of breath or chest pain. No cough or wheezing. No dizziness. No N/V/D. Urinating okay, denies dysuria. Denies any focal deficits. Nursing staff tells me he is intermittently confused. He is doing well with therapy and able to ambulate long distances with his walker. No edema. He does have a flat affect. [facility] Medical History (Updated 02/02/21 @ 11:35 by ADRIANO King) High cholesterol Hypertension ICD (implantable cardioverter-defibrillator) in place Myocardial infarct Sudden cardiac arrest Home Medications aspirin 81 mg PO DAILY 01/30/21 [History Last Taken 01/31/21 09:43] carvedilol 25 mg PO BID 01/30/21 [History Last Taken 01/31/21 09:43] colestipol 5 g PO TID 01/30/21 [History Last Taken Unknown] digoxin [Lanoxin] 250 mcg PO DAILY 01/30/21 [History Last Taken 01/31/21 09:43] icosapent ethyl [Vascepa] 2 g PO BID 01/30/21 [History Last Taken Unknown] lisinopril 10 mg PO BID 01/30/21 [History Last Taken 01/31/21 09:42] cf-xqs-XX-Zs-Fn-ompqzvh-lutein 1 tab PO DAILY 01/30/21 [History Last Taken 01/31/21 09:43] omega-3 fatty acids-vitamin E 1 cap PO BID 01/30/21 [History Last Taken Unknown] rosuvastatin 20 mg PO DAILY 01/30/21 [History Last Taken 01/30/21 22:44] spironolactone [Aldactone] 25 mg PO DAILY 01/30/21 [History Last Taken 01/31/21 09:43] insulin glargine [Lantus Solostar U-100 Insulin] 20 unit SUBCUT QHS 01/31/21 [History Last Taken 01/30/21 22:45] insulin lispro [Humalog KwikPen Insulin] See Protocol SUBCUT ACHS 01/31/21 [History Last Taken 01/31/21 16:21] levetiracetam 500 mg PO BID 01/31/21 [History Last Taken 01/31/21 11:01] Allergy/AdvReac Type Severity Reaction Status Date / Time No Known Allergies Allergy Verified 01/30/21 00:33 Surgical History Hx of CABG Social History (Updated 01/31/21 @ 22:[address] David Wright MD) household members: spouse Smoking Status: Never smoker ROS ROS Narrative Review of systems otherwise negative from a constitutional, HEENT, respiratory, cardiovascular, GI, genitourinary, musculoskeletal, skin, neurologic, psychiatric and hematologic system unless stated above. Physical Exam Const alert and no apparent distress General Appearance: cooperative Orientation / Consciousness: oriented to person and oriented to place HEENT normocephalic and head/scalp atraumatic Neck supple General: trachea midline Resp normal respiratory effort and normal air movement Effort and Inspection: able to speak in complete sentences Auscultation: clear to auscultation bilaterally Cardio regular rate, regular rhythm, S1 normal heart sound and S2 normal heart sound GI normal to inspection, nondistended, normoactive bowel sounds Back/Spine no CVA tenderness and thoracic and lumbar spine normal to inspection Extremity no clubbing, cyanosis or edema Skin no rashes or lesions noted Neuro CN's II-XII intact bilaterally and no focal motor deficits Psych Attitude: calm Activity / Motor Behavior: appropriate eye contact Speech: normal speech Mood & Affect: flat affect Thought Process: confused Thought Content: No hallucination(s) Memory / Cognition: cognition impaired Insight: fair Judgement: fair
[2021-02-02 11:26] LABS: Bedside Glucose 300 mg/dL (70-110)
[2021-02-02] MEDS: Tuberculin,Purif.prot.deriv. 50 TU/ML Vial 0.1 ML ID (12:04)
[2021-02-02 16:45] VITALS: BP 97/53; PULSE 65; RESP 16; TEMP 36.9; O2SAT 97
[2021-02-02 17:17] VITALS: BP 132/66; PULSE 64
[2021-02-02 17:21] LABS: Bedside Glucose 278 mg/dL (70-110)
[2021-02-02] MEDS: Atorvastatin Calcium 40 MG Tablet PO (21:14)
[2021-02-02 21:45] LABS: Bedside Glucose 293 mg/dL (70-110)
[2021-02-03 05:25] VITALS: BP 122/70; PULSE 61; RESP 16; TEMP 35.9
[2021-02-03 06:07] VITALS: BP 122/70; PULSE 61
[2021-02-03] MEDS: Enoxaparin 40 MG/0.4 ML Syringe SC (06:07)
[2021-02-03] MEDS: Spironolactone 25 MG Tablet PO (06:07)
[2021-02-03] MEDS: Lisinopril 10 MG Tablet PO ×2 (06:07→17:35)
[2021-02-03] MEDS: Digoxin 125 MCG Tablet PO (06:07)
[2021-02-03] MEDS: levETIRAcetam 500 MG Tablet PO ×2 (06:07→17:36)
[2021-02-03] MEDS: Carvedilol 25 MG Tablet PO ×2 (06:07→17:35)
[2021-02-03] MEDS: Senna/Docusate Sodium 1 Tablet PO ×2 (06:08→17:35)
[2021-02-03 06:26] LABS: Bedside Glucose 227 mg/dL (70-110)
[2021-02-03] MEDS: Aspirin E.C. 81 MG Tablet PO (08:14)
[2021-02-03] MEDS: Insulin Lispro 100 UNIT/ML INSULN.PEN 7 UNIT SC ×2 (08:15→12:11)
[2021-02-03 11:11] LABS: Bedside Glucose 312 mg/dL (70-110)
[2021-02-03 16:00] VITALS: BP 106/54; PULSE 64; RESP 17; TEMP 36.6; O2SAT 97
[2021-02-03 17:10] LABS: Bedside Glucose 224 mg/dL (70-110)
[2021-02-03] MEDS: Insulin Lispro 100 UNIT/ML INSULN.PEN 10 UNIT SC (17:34)
[2021-02-03] MEDS: Atorvastatin Calcium 40 MG Tablet PO (20:21)
[2021-02-03 21:00] VITALS: PULSE 79; RESP 14; O2SAT 96
[2021-02-03 21:31] LABS: Bedside Glucose 288 mg/dL (70-110)
[2021-02-04 05:00] VITALS: BP 127/73; PULSE 65; RESP 14; TEMP 36.5; O2SAT 96
[2021-02-04 05:41] VITALS: BP 127/73; PULSE 72
[2021-02-04] MEDS: Lisinopril 10 MG Tablet PO ×2 (05:41→17:44)
[2021-02-04] MEDS: Enoxaparin 40 MG/0.4 ML Syringe SC (05:41)
[2021-02-04] MEDS: Digoxin 125 MCG Tablet PO (05:41)
[2021-02-04] MEDS: Senna/Docusate Sodium 1 Tablet PO ×2 (05:41→17:44)
[2021-02-04] MEDS: Spironolactone 25 MG Tablet PO (05:42)
[2021-02-04] MEDS: Carvedilol 25 MG Tablet PO ×2 (05:42→17:44)
[2021-02-04] MEDS: levETIRAcetam 500 MG Tablet PO ×2 (05:42→17:44)
[2021-02-04 06:41] LABS: Bedside Glucose 306 mg/dL (70-110)
[2021-02-04] MEDS: Aspirin E.C. 81 MG Tablet PO (08:49)
[2021-02-04] MEDS: Insulin Lispro 100 UNIT/ML INSULN.PEN 10 UNIT SC (08:49)
[2021-02-04 10:00] VITALS: PULSE 66; RESP 18; O2SAT 98
[2021-02-04 11:40] LABS: Bedside Glucose 315 mg/dL (70-110)
[2021-02-04] MEDS: Insulin Lispro 100 UNIT/ML INSULN.PEN 15 UNIT SC ×2 (11:50→17:44)
[2021-02-04 14:44] VITALS: BP 126/63; PULSE 67; RESP 14; TEMP 36.6; O2SAT 98
[2021-02-04 16:30] LABS: Bedside Glucose 230 mg/dL (70-110)
[2021-02-04] MEDS: Atorvastatin Calcium 40 MG Tablet PO (20:39)
[2021-02-04 21:36] LABS: Bedside Glucose 306 mg/dL (70-110)
[2021-02-05] MEDS: Enoxaparin 40 MG/0.4 ML Syringe SC (04:36)
[2021-02-05] MEDS: Carvedilol 25 MG Tablet PO ×2 (04:36→17:25)
[2021-02-05] MEDS: Spironolactone 25 MG Tablet PO (04:36)
[2021-02-05 04:37] VITALS: BP 133/66; PULSE 73
[2021-02-05] MEDS: Senna/Docusate Sodium 1 Tablet PO ×2 (04:37→17:25)
[2021-02-05] MEDS: Lisinopril 10 MG Tablet PO ×2 (04:37→17:25)
[2021-02-05] MEDS: Digoxin 125 MCG Tablet PO (04:37)
[2021-02-05] MEDS: levETIRAcetam 500 MG Tablet PO ×2 (04:37→17:25)
[2021-02-05 04:42] VITALS: BP 133/66; PULSE 73; RESP 14; TEMP 36.1
[2021-02-05 06:31] LABS: Bedside Glucose 259 mg/dL (70-110)
[2021-02-05] MEDS: Insulin Lispro 100 UNIT/ML INSULN.PEN 15 UNIT SC ×3 (08:20→17:25)
[2021-02-05] MEDS: Aspirin E.C. 81 MG Tablet PO (08:21)
[2021-02-05 11:20] LABS: Bedside Glucose 297 mg/dL (70-110)
[2021-02-05 13:44] VITALS: BP 110/54; PULSE 66; RESP 18; TEMP 36.1; O2SAT 98
[2021-02-05] MEDS: Bisacodyl 5 MG Tablet 10 MG PO (15:19)
[2021-02-05 16:20] LABS: Bedside Glucose 263 mg/dL (70-110)
[2021-02-05] MEDS: Atorvastatin Calcium 40 MG Tablet PO (20:02)
[2021-02-05 21:51] LABS: Bedside Glucose 316 mg/dL (70-110)
[2021-02-05 23:39] VITALS: PULSE 68; RESP 16; O2SAT 93
[2021-02-06] MEDS: Enoxaparin 40 MG/0.4 ML Syringe SC (05:43)
[2021-02-06 05:44] VITALS: BP 115/65; PULSE 70
[2021-02-06] MEDS: Lisinopril 10 MG Tablet PO ×2 (05:44→16:56)
[2021-02-06] MEDS: Senna/Docusate Sodium 1 Tablet PO ×2 (05:44→16:56)
[2021-02-06] MEDS: Digoxin 125 MCG Tablet PO (05:44)
[2021-02-06] MEDS: levETIRAcetam 500 MG Tablet PO ×2 (05:44→16:56)
[2021-02-06] MEDS: Spironolactone 25 MG Tablet PO (05:44)
[2021-02-06] MEDS: Carvedilol 25 MG Tablet PO ×2 (05:44→16:56)
[2021-02-06 06:20] LABS: Bedside Glucose 233 mg/dL (70-110)
[2021-02-06 06:22] VITALS: BP 115/65; PULSE 70; RESP 12; TEMP 35.9; O2SAT 97
[2021-02-06] MEDS: Insulin Lispro 100 UNIT/ML INSULN.PEN 17 UNIT SC ×3 (08:04→17:35)
[2021-02-06] MEDS: Aspirin E.C. 81 MG Tablet PO (08:05)
[2021-02-06 10:51] LABS: Bedside Glucose 153 mg/dL (70-110)
[2021-02-06 13:11] VITALS: BP 108/58; PULSE 69; RESP 16; TEMP 36.1; O2SAT 98
[2021-02-06 16:55] LABS: Bedside Glucose 236 mg/dL (70-110)
[2021-02-06 22:01] LABS: Bedside Glucose 249 mg/dL (70-110)
[2021-02-06] MEDS: Atorvastatin Calcium 40 MG Tablet PO (22:27)
[2021-02-07 04:58] VITALS: BP 100/70; PULSE 70; RESP 16; TEMP 36; O2SAT 98
[2021-02-07 04:59] VITALS: BP 110/70; PULSE 70
[2021-02-07] MEDS: Enoxaparin 40 MG/0.4 ML Syringe SC (04:59)
[2021-02-07] MEDS: Digoxin 125 MCG Tablet PO (04:59)
[2021-02-07] MEDS: Senna/Docusate Sodium 1 Tablet PO ×2 (04:59→17:17)
[2021-02-07] MEDS: Spironolactone 25 MG Tablet PO (05:00)
[2021-02-07] MEDS: Lisinopril 10 MG Tablet PO ×2 (05:00→17:17)
[2021-02-07] MEDS: levETIRAcetam 500 MG Tablet PO ×2 (05:00→17:16)
[2021-02-07 06:31] LABS: Bedside Glucose 237 mg/dL (70-110)
[2021-02-07] MEDS: Insulin Lispro 100 UNIT/ML INSULN.PEN 17 UNIT SC ×3 (08:03→17:17)
[2021-02-07] MEDS: Aspirin E.C. 81 MG Tablet PO (08:03)
[2021-02-07] MEDS: Carvedilol 25 MG Tablet PO ×2 (08:03→17:17)
[2021-02-07 10:51] LABS: Bedside Glucose 228 mg/dL (70-110)
[2021-02-07 13:36] VITALS: BP 94/50; PULSE 65; RESP 15; TEMP 36.4; O2SAT 98
[2021-02-07 16:45] LABS: Bedside Glucose 209 mg/dL (70-110)
[2021-02-07 17:16] VITALS: BP 124/65; PULSE 62
[2021-02-07] MEDS: Atorvastatin Calcium 40 MG Tablet PO (20:35)
[2021-02-07 22:36] LABS: Bedside Glucose 296 mg/dL (70-110)
[2021-02-08 05:00] VITALS: BP 114/63; PULSE 69; RESP 16; TEMP 35.9; O2SAT 97
[2021-02-08 05:36] LABS: Absolute Lymphocyte Count 3.53 X10^3/uL (0.83-4.51); Absolute Neutrophil Count 3.5 X10^3/uL (2.0-7.7); Basophil# 0.04 X10^3/uL; Basophil% 0.5 % (0-1); Eosinophil# 0.17 X10^3/uL; Eosinophils% 2.1 % (0-5); Hematocrit 41.3 % (40-54); Hemoglobin 13.8 g/dL (13.0-16.5); Lymphocyte # 3.53 X10^3/ul (0.83-4.51); Lymphocyte % 43.3 % (19-41); Mean Corp Hgb Conc 33.4 g/dL (32-36); Mean Corpuscular Hgb 32.2 pg (27.0-32.0); Mean Corpuscular Volume 96.3 fL (80-94); Mean Platelet Vol. 10.7 fl (6.2-12.0); Monocyte# 0.86 X10^3/uL; Monocyte% 10.5 % (0-10); NRBC Flagged by Analyzer 0 % (0-5); Neutrophil # 3.49 X10^3/uL (2.7-7.7); Neutrophil % 42.7 % (47-70); Platelet Count 227 K/mm3 (150-450); RBC Distribution Width CV 12.6 % (11.6-14.6); RBC Distribution Width SD 44.4 fl (35.1-43.9); Red Blood Count 4.29 M/mm3 (4.6-6.2); White Blood Count 8.2 K/mm3 (4.4-11.0)
[2021-02-08 05:52] LABS: Anion Gap 6 (5-15); BUN 23 mg/dL (7-18); BUN/Creat Ratio 20.5 RATIO (10-20); Chloride 106 mmol/L (98-107); Creatinine, Serum 1.12 mg/dL (0.70-1.30); EST Glomerular Filtration Rate 66 mL/min (>60); Est Glom Filt Rate - Afr Amer 80 mL/min (>60); Estimated Creatinine Clearance 47.49 ml/min; Glucose 194 mg/dL (74-106); Potassium 3.8 mmol/L (3.5-5.1); Sodium Level 140 mmol/L (136-145)
[2021-02-08 06:01] VITALS: BP 114/63; PULSE 68
[2021-02-08] MEDS: Digoxin 125 MCG Tablet PO (06:01)
[2021-02-08] MEDS: Spironolactone 25 MG Tablet PO (06:01)
[2021-02-08] MEDS: Enoxaparin 40 MG/0.4 ML Syringe SC (06:01)
[2021-02-08] MEDS: Lisinopril 10 MG Tablet PO ×2 (06:01→17:38)
[2021-02-08] MEDS: Senna/Docusate Sodium 1 Tablet PO ×2 (06:01→17:35)
[2021-02-08] MEDS: levETIRAcetam 500 MG Tablet PO ×2 (06:02→17:36)
[2021-02-08 06:40] LABS: Bedside Glucose 213 mg/dL (70-110)
[2021-02-08] MEDS: Insulin Lispro 100 UNIT/ML INSULN.PEN 20 UNIT SC ×3 (08:22→17:33)
[2021-02-08] MEDS: Aspirin E.C. 81 MG Tablet PO (08:23)
[2021-02-08] MEDS: Carvedilol 25 MG Tablet PO ×2 (08:23→17:38)
[2021-02-08 10:56] LABS: Bedside Glucose 234 mg/dL (70-110)
[2021-02-08 13:57] VITALS: BP 86/44; PULSE 63; RESP 16; TEMP 36.2; O2SAT 97
--- NOTE | 2021-02-08 15:35 | CASEMGMT ---
Social Work Team meeting held today with pt and present. Pt is receiving PT/OT/ST and progressing well. Pt requesting to return home at this time and discharge date set for 02/11/21. Therapy recommending home health PT/OT/ST/SN/[employer] and pt and agreeable. List of [facility] providers including quality and resource use data and consistent with the patient's preferred geographic region, medical needs and insurance network provided to pt and . Preferred provider is [facility]. Pt is a new diabetic and will need script for Glucometer. Pt also stating his PCP has retired and he has not established with a new PCP. SW spoke with regarding this and to go [facility] today to request an appointment for pt as a new patient. Referral made to [facility] and [facility] will await determination if they can accept pt. ELIAS Ulrich
[2021-02-08 16:16] LABS: Bedside Glucose 211 mg/dL (70-110)
--- NOTE | 2021-02-08 16:30 | CASEMGMT ---
Social Work Return call from [facility] and they are able to accept pt with a start of care date of Tuesday 02/13. left with Pt updating on [facility]. ELIAS Ulrich
[2021-02-08 17:39] VITALS: BP 115/66; PULSE 66
--- NOTE | 2021-02-08 21:01 | DS.PCM_ITS ---
Providers Date of Admission: 01/31/21 Primary Care Physician: Dr. Samuel Chamorro Consultations 02/01/21 04:36 Consult: Neurology Routine Consulting Provider: Manan Martinez Reason for Consult: change in mental status/seizures EMERGENT Consult: No MD Notified: Yes Date Notified: 02/01/21 Time Notified: 04:37 Method of Notification: Answering Service Comments:: make appointment in 2 wks Reason For Visit: NEW ONSET SEIZURE Diagnosis Discharge Diagnosis (1) Debility: Status: Acute Code(s): R53.81 - Other malaise (2) New onset seizure: Status: Acute Code(s): R56.9 - Unspecified convulsions (3) New onset type 2 diabetes mellitus: Status: Acute Code(s): E11.9 - Type 2 diabetes mellitus without complications (4) Coronary artery disease: Status: Acute Code(s): I25.10 - Atherosclerotic heart disease of [place] coronary artery without angina pectoris Qualifiers: Coronary Disease-Associated Artery/Lesion type: [place] artery [place] vs. transplanted heart: [place] heart Associated angina: without angina Qualif ied Code(s): I25.10 - Atherosclerotic heart disease of [place] coronary artery without angina pectoris (5) Hypertension: Status: Chronic Code(s): I10 - Essential (primary) hypertension Qualifiers: Hypertension type: unspecified Qualified Code(s): I10 - Essential (primary) hypertension (6) Hyperlipidemia: Status: Acute Code(s): E78.5 - Hyperlipidemia, unspecified Qualifiers: Hyperlipidemia type: unspecified Qualified Code(s): E78.5 - Hyperlipidemia, unspecified (7) Chronic systolic congestive heart failure: Status: Chronic Code(s): I50.22 - Chronic systolic (congestive) heart failure (8) ICD (implantable cardioverter-defibrillator) in place: Status: Acute Code(s): Z95.810 - Presence of automatic (implantable) cardiac defibrillator (9) Acute alteration in mental status: Status: Resolved Code(s): R41.82 - Altered mental status, unspecified Medications at Discharge Home Medications aspirin 81 mg PO DAILY 01/30/21 carvedilol 25 mg PO BID 01/30/21 colestipol 5 g PO TID 01/30/21 digoxin [Lanoxin] 250 mcg PO DAILY 01/30/21 icosapent ethyl [Vascepa] 2 g PO BID 01/30/21 lisinopril 10 mg PO BID 01/30/21 [id number]-mus-CN-Li-Hg-znezxgi-lutein 1 tab PO DAILY 01/30/21 rosuvastatin 20 mg PO DAILY 01/30/21 spironolactone [Aldactone] 25 mg PO DAILY 01/30/21 acetaminophen 1,000 mg PO Q6H PRN PRN #0 tab 02/08/21 insulin glargine [Lantus Solostar U-100 Insulin] 60 unit SUBCUT QHS 30 Days #1 ea 02/08/21 insulin lispro [Humalog KwikPen Insulin] 20 unit SUBCUT TIDAC 30 Days #1 ea 0 02/08/21 levetiracetam 500 mg PO BID 30 Days #60 tab 02/08/21 Hospital Course Operations None Procedures None Summary of Care Provided Minutes Spent on Discharge: 35 Hospital Course: 85 year old male with below past medical history hospitalized for acute encephalopathy secondary to new onset seizure disorder, complicated by new onset diabetes mellitus, dysphagia, admitted to TCU with debility, here for rehabilitation, strengthening, prior to discharge home with . Discharge home with 02/11/2021, [facility] PT/OT/ST/SN/WEB SITE SPECIALIST. Physical Exam Const alert and oriented x3 General Appearance: cooperative HEENT normocephalic Eyes PERRL and EOMs intact bilaterally Neck supple, no JVD and no carotid bruits Resp normal respiratory effort, normal air movement and clear to auscultation bilaterally Cardio regular rate and regular rhythm GI normal to inspection, nondistended, normoactive bowel sounds, non-tender and non-distended Extremity normal capillary refill General Extremity: Negative for edema Skin no rashes or lesions noted General Skin Exam: no breakdown Psych affect normal Appearance: appropriate Medical Records Data Medical Nutrition Assessment Dietitian: Nutrition Therapy Diagnosis Start: 02/08/21 11:53 Freq: Status: Active Protocol: Document 02/08/21 11:53 DONNY (Rec: 02/08/21 11:54 DONNY [id number]) Nutrition Malnutrition Evidence of Malnutrition Exists No Clinical Problem Altered Nutrient-Related Laboratory Values Etiology related to new diagnosis of DM2 Signs/Symptoms as evidenced by gluc 194 Status Active Problem Recommendation Dietitian Recommendations/Changes Will continue with current diet as ordered Will continue to provide ongoing diabetes diet education while res on TCU Weight / BMI Weight Weight: 69.626 kg Body Mass Index (BMI) 17.1 ABG / Lab / Microbiology Data Result Diagrams: 02/08/21 05:30 02/08/21 05:30 Laboratory: Laboratory Results - last 24 hr 02/07/21 22:15: POC Glucose 296 H 02/08/21 05:30: WBC 8.2, RBC 4.29 L, Hgb 13.8, Hct 41.3, MCV 96.3 H, MCH 32.2 H, MCHC 33.4, RDW Std Deviation 44.4 H, RDW Coeff of Alfredo 12.6, Plt Count 227, MPV 10.7, Immature Gran % (Auto) 0.900, Neut % (Auto) 42.7 L, Lymph % (Auto) 43.3 H, [place] % (Auto) 10.5 H, Eos % (Auto) 2.1, Baso % (Auto) 0.5, Absolute Neuts (auto) 3.5, Absolute Lymphs (auto) 3.53, Nucleated RBC % 0 02/08/21 05:30: Sodium 140, Potassium 3.8, Chloride 106, Carbon Dioxide 28.0, Anion Gap 6, BUN 23 H, Creatinine 1.12, Estim Creat Clear Calc 47.49, Est GFR (MDRD) Af Amer 80, Est GFR (MDRD) Non-Af 66, BUN/Creatinine Ratio 20.5 H, Glucose 194 H, Calcium 9.0 02/08/21 06:10: POC Glucose 213 H 02/08/21 10:47: POC Glucose 234 H 02/08/21 16:10: POC Glucose 211 H D/C Instructions Discharge Diet: No restrictions Discharge Activity: Return to Normal Activity, May Shower and Use Walker Weight Bearing Status: Weight bearing as tolerated Call your doctor if you observe: Fever of 101 or Higher, Inability to urinate, Inability to have a bowel movement, Shortness of breath, Dizziness, Fainting spells, Swelling in the ankles, Chest pain, Increased palpitations (irregular heartbeat) and Uncontrolled pain Additional Instructions: Discharge home with 02/11/2021, [facility] PT/OT/ST/SN/WEB SITE SPECIALIST. Please Follow Up With: Manan Martinez MD When: 2 weeks. Meaningful Use Info Meaningful Use Diagnoses (Choose all that apply): None applicable Discharge Plan Admission Admit Date/Time: 01/31/21 19:01 Primary Reason for Your Visit: Debility Attending Provider: David Wright Chi Primary Care Provider: Dalton Sanchez Consulting Providers: Manan Martinez Instructions Additional Instructions / Restrictions: Discharge home with 02/11/2021, [facility] PT/OT/ST/SN/WEB SITE SPECIALIST. Discharge Orders/Prescriptions Prescriptions: New Lantus Solostar U-100 Insulin 100 unit/mL (3 mL) Insulin Pen 60 unit subcut QHS 30 Days Qty: 1 RF: 0 acetaminophen 500 mg Tablet 1,000 mg PO Q6H PRN PRN (Reason: Pain Score 1-10) Qty: 0 RF: 0 insulin lispro [Humalog KwikPen Insulin] 100 unit/mL Insulin Pen 20 unit subcut TIDAC 30 Days Qty: 1 RF: 0 Continued carvedilol 12.5 mg tablet 25 mg PO BID RF: 0 digoxin [Lanoxin] 250 mcg (0.25 mg) Tablet 250 mcg PO DAILY RF: 0 aspirin 81 mg Tablet,Delayed Release (Dr/Ec) 81 mg PO DAILY RF: 0 spironolactone [Aldactone] 25 mg Tablet 25 mg PO DAILY RF: 0 lisinopril 10 mg tablet 10 mg PO BID RF: 0 colestipol 5 gram packet 5 g PO TID RF: 0 rosuvastatin 20 mg tablet 20 mg PO DAILY RF: 0 zo-cgf-VD-Gj-Is-qdzlfdu-lutein 0.4-162-18 mg Tablet 1 tab PO DAILY RF: 0 icosapent ethyl [Vascepa] 1 gram capsule 2 g PO BID RF: 0 levetiracetam 500 mg tablet 500 mg PO BID 30 Days Qty: 60 RF: 0 Discontinued omega-3 fatty acids-vitamin E 1,000 mg Capsule 1 cap PO BID RF: 0 insulin lispro [Humalog KwikPen Insulin] 100 unit/mL insulin pen See Protocol unit subcut ACHS RF: 0 Lantus Solostar U-100 Insulin 100 unit/mL (3 mL) insulin pen 20 unit subcut QHS RF: 0 Referrals / Follow Up: Samuel Chamorro MD [STAFF PHYSICIAN] - In 1 Week Manan Martinez MD [STAFF PHYSICIAN] - Within 2 Weeks Disposition Disposition (needs filled in before D/C Order can be placed): Home Health Service
[2021-02-08] MEDS: Atorvastatin Calcium 40 MG Tablet PO (21:38)
[2021-02-08 21:55] LABS: Bedside Glucose 266 mg/dL (70-110)
[2021-02-09 06:04] VITALS: BP 115/72; PULSE 68
[2021-02-09] MEDS: levETIRAcetam 500 MG Tablet PO ×2 (06:04→17:51)
[2021-02-09] MEDS: Spironolactone 25 MG Tablet PO (06:04)
[2021-02-09] MEDS: Digoxin 125 MCG Tablet PO (06:04)
[2021-02-09] MEDS: Enoxaparin 40 MG/0.4 ML Syringe SC (06:05)
[2021-02-09] MEDS: Senna/Docusate Sodium 1 Tablet PO ×2 (06:05→17:52)
[2021-02-09] MEDS: Lisinopril 10 MG Tablet PO ×2 (06:05→17:52)
[2021-02-09 06:08] VITALS: BP 115/72; PULSE 71; RESP 16; TEMP 36.1; O2SAT 99
[2021-02-09 06:25] LABS: Bedside Glucose 153 mg/dL (70-110)
[2021-02-09] MEDS: Aspirin E.C. 81 MG Tablet PO (08:28)
[2021-02-09] MEDS: Carvedilol 25 MG Tablet PO ×2 (08:28→17:51)
[2021-02-09] MEDS: Insulin Lispro 100 UNIT/ML INSULN.PEN 15 UNIT SC ×3 (08:29→17:50)
[2021-02-09 10:40] LABS: Bedside Glucose 192 mg/dL (70-110)
[2021-02-09] MEDS: Tuberculin,Purif.prot.deriv. 50 TU/ML Vial 0.1 ML ID (11:25)
--- NOTE | 2021-02-09 11:32 | NURSING ---
Pt teaching on administering Insulin done this shift. Pt was able to demonstrate how to administer the insulin from start to finish. Needed some reinforcement on choosing a spot and remembering to remove the insulin needle cap.
[2021-02-09 13:26] VITALS: BP 92/48; PULSE 64; RESP 18; TEMP 36.2; O2SAT 97
[2021-02-09 17:10] LABS: Bedside Glucose 227 mg/dL (70-110)
[2021-02-09 21:26] LABS: Bedside Glucose 192 mg/dL (70-110)
[2021-02-09 21:40] VITALS: PULSE 63; RESP 16; O2SAT 99
[2021-02-09] MEDS: Atorvastatin Calcium 40 MG Tablet PO (21:41)
[2021-02-10 05:00] VITALS: BP 123/82; PULSE 72; RESP 16; TEMP 35.9; O2SAT 100
[2021-02-10] MEDS: Senna/Docusate Sodium 1 Tablet PO ×2 (05:54→17:26)
[2021-02-10] MEDS: Spironolactone 25 MG Tablet PO (05:54)
[2021-02-10] MEDS: levETIRAcetam 500 MG Tablet PO ×2 (05:54→17:26)
[2021-02-10] MEDS: Lisinopril 10 MG Tablet PO ×2 (05:54→17:26)
[2021-02-10 05:55] VITALS: PULSE 76
[2021-02-10] MEDS: Digoxin 125 MCG Tablet PO (05:55)
[2021-02-10] MEDS: Enoxaparin 40 MG/0.4 ML Syringe SC (05:55)
[2021-02-10 06:25] LABS: Bedside Glucose 166 mg/dL (70-110)
[2021-02-10] MEDS: Aspirin E.C. 81 MG Tablet PO (08:23)
[2021-02-10] MEDS: Carvedilol 25 MG Tablet PO ×2 (08:23→17:26)
[2021-02-10] MEDS: Insulin Lispro 100 UNIT/ML INSULN.PEN 15 UNIT SC ×2 (08:24→12:42)
[2021-02-10 10:00] VITALS: PULSE 76; RESP 16; O2SAT 98
[2021-02-10 11:16] LABS: Bedside Glucose 132 mg/dL (70-110)
[2021-02-10 14:44] VITALS: BP 112/55; PULSE 71; RESP 16; TEMP 36.9; O2SAT 98
--- NOTE | 2021-02-10 15:29 | CASEMGMT ---
Social Work Call from [facility] stating start of care is Saturday instead of Saturday. Pt updated and VM left with pt . ELIAS Ulrich
[2021-02-10 16:01] LABS: Bedside Glucose 167 mg/dL (70-110)
[2021-02-10] MEDS: Insulin Lispro 100 UNIT/ML INSULN.PEN 10 UNIT SC (17:26)
[2021-02-10 22:41] LABS: Bedside Glucose 166 mg/dL (70-110)
[2021-02-10] MEDS: Atorvastatin Calcium 40 MG Tablet PO (23:04)
[2021-02-11 05:00] VITALS: BP 129/89; PULSE 72; RESP 14; TEMP 35.9; O2SAT 99
[2021-02-11 06:01] VITALS: PULSE 76
[2021-02-11] MEDS: levETIRAcetam 500 MG Tablet PO (06:01)
[2021-02-11] MEDS: Digoxin 125 MCG Tablet PO (06:01)
[2021-02-11] MEDS: Spironolactone 25 MG Tablet PO (06:01)
[2021-02-11] MEDS: Enoxaparin 40 MG/0.4 ML Syringe SC (06:01)
[2021-02-11] MEDS: Lisinopril 10 MG Tablet PO (06:01)
[2021-02-11] MEDS: Senna/Docusate Sodium 1 Tablet PO (06:01)
[2021-02-11 06:50] LABS: Bedside Glucose 117 mg/dL (70-110)
[2021-02-11] MEDS: Carvedilol 25 MG Tablet PO (09:13)
[2021-02-11] MEDS: Aspirin E.C. 81 MG Tablet PO (09:13)
[2021-02-11] MEDS: Insulin Lispro 100 UNIT/ML INSULN.PEN 10 UNIT SC (09:13)
[2021-02-11 11:10] LABS: Bedside Glucose 107 mg/dL (70-110)
[2021-02-11] MEDS: Insulin Lispro 100 UNIT/ML INSULN.PEN 7 UNIT SC (12:38)
--- NOTE | 2021-02-13 07:40 | MDS.RN ---
Information for the mds was obtained from review of the clinical record, interview of resident, staff, and direct observation of resident's care.
== END 2021-02-11 13:28 | disposition home health service (06) | DRG 101 ==
PROVIDERS: Admitting Provider Family Medicine Geriatric Medicine; PCP Family Medicine; Visit Provider Family Medicine Geriatric Medicine
DX: G40.909 Epilepsy, unspecified, not intractable, without status epilepticus (principal); I50.22 Chronic systolic (congestive) heart failure; E11.9 Type 2 diabetes mellitus without complications; I25.10 Atherosclerotic heart disease of native coronary artery without angina pectoris; E78.5 Hyperlipidemia, unspecified; I11.0 Hypertensive heart disease with heart failure; I25.2 Old myocardial infarction; Z95.810 Presence of automatic (implantable) cardiac defibrillator; Z86.74 Personal history of sudden cardiac arrest; Z79.899 Other long term (current) drug therapy; Z79.82 Long term (current) use of aspirin; Z79.4 Long term (current) use of insulin; Z95.1 Presence of aortocoronary bypass graft
CPT/HCPCS: 36415; 80048; 82962; 85025; 87635; 92507; 92523; 92526; 92610; 95819; 97110; 97116; 97162; 97166; 97530; 97535; 97802; 97803; U0005; U0003

== ENCOUNTER → 2021-02-01 20:03 | Outpatient (CLI) | payer MEDICARE, OTHER, SELFPAY ==
[2021-02-01 10:59] VITALS: BMI 17.1
== END ==
PROVIDERS: PCP Family Medicine; Visit Provider Family Medicine Geriatric Medicine
DX: R56.9 Unspecified convulsions (principal)

== ENCOUNTER → 2021-02-15 16:38 | Outpatient (CLI) | payer MEDICARE, OTHER, SELFPAY ==
[2021-02-01 10:59] VITALS: BMI 17.1
[2021-02-15 17:19] LABS: Absolute Lymphocyte Count 3.45 X10^3/uL (0.83-4.51); Absolute Neutrophil Count 2.7 X10^3/uL (2.0-7.7); Basophil# 0.03 X10^3/uL; Basophil% 0.4 % (0-1); Eosinophil# 0.11 X10^3/uL; Eosinophils% 1.6 % (0-5); Hematocrit 38.4 % (40-54); Hemoglobin 12.7 g/dL (13.0-16.5); Lymphocyte # 3.45 X10^3/ul (0.83-4.51); Lymphocyte % 48.7 % (19-41); Mean Corp Hgb Conc 33.1 g/dL (32-36); Mean Corpuscular Hgb 32.3 pg (27.0-32.0); Mean Corpuscular Volume 97.7 fL (80-94); Mean Platelet Vol. 11.2 fl (6.2-12.0); Monocyte# 0.77 X10^3/uL; Monocyte% 10.9 % (0-10); NRBC Flagged by Analyzer 0 % (0-5); Neutrophil # 2.68 X10^3/uL (2.7-7.7); Neutrophil % 37.8 % (47-70); Platelet Count 198 K/mm3 (150-450); RBC Distribution Width CV 12.2 % (11.6-14.6); RBC Distribution Width SD 44.1 fl (35.1-43.9); Red Blood Count 3.93 M/mm3 (4.6-6.2); White Blood Count 7.1 K/mm3 (4.4-11.0)
[2021-02-15 17:54] LABS: AST(SGOT) 36 U/L (15-37); Alanine Aminotransfer ALT/SGPT 46 U/L (16-61); Albumin, Serum 3.7 g/dL (3.2-5.0); Alkaline Phosphatase 45 U/L (45-117); Anion Gap 4 (5-15); BUN 23 mg/dL (7-18); BUN/Creat Ratio 20.2 RATIO (10-20); Chloride 107 mmol/L (98-107); Creatinine, Serum 1.14 mg/dL (0.70-1.30); EST Glomerular Filtration Rate 65 mL/min (>60); Est Glom Filt Rate - Afr Amer 79 mL/min (>60); Globulin 3.7 g/dL (2.2-4.2); Glucose 114 mg/dL (74-106); Potassium 4.8 mmol/L (3.5-5.1); Protein, Total 7.4 g/dL (6.4-8.2); Sodium Level 139 mmol/L (136-145); Thyroid Stim Hormone (TSH) 3.62 uIU/mL (0.358-3.74)
== END ==
PROVIDERS: PCP Family Medicine; Visit Provider Family Medicine Geriatric Medicine
DX: R53.83 Other fatigue (principal)
CPT/HCPCS: 36415; 80053; 84443; 85025

== ENCOUNTER → 2021-02-28 07:08 | Outpatient (CLI) | payer MEDICARE, OTHER, SELFPAY ==
[2021-02-27 11:03] VITALS: BMI 23.6
[2021-02-28 09:09] LABS: Vitamin B12 597 pg/mL (211-911)
[2021-03-04 15:29] LABS: KEPPRA (LEVETIRACETAM) 14.9 ug/mL (10.0-40.0)
== END ==
LOC: MTLAB 07:09 → LAB 08:27
PROVIDERS: PCP Family Medicine; Referring Provider Psychiatry & Neurology Neurology; Visit Provider Psychiatry & Neurology Neurology
DX: G31.84 Mild cognitive impairment of uncertain or unknown etiology (principal); G40.909 Epilepsy, unspecified, not intractable, without status epilepticus
CPT/HCPCS: 36415; 80177; 82140; 82607; 82746; 84425

== ENCOUNTER → 2021-05-17 15:47 | Outpatient (CLI) | payer MEDICARE, OTHER, SELFPAY ==
[2021-05-17 17:30] LABS: Absolute Lymphocyte Count 2.98 X10^3/uL (0.83-4.51); Absolute Neutrophil Count 2.6 X10^3/uL (2.0-7.7); Basophil# 0.03 X10^3/uL; Basophil% 0.5 % (0-1); Eosinophil# 0.16 X10^3/uL; Eosinophils% 2.5 % (0-5); Hematocrit 37.7 % (40-54); Hemoglobin 12.4 g/dL (13.0-16.5); Lymphocyte # 2.98 X10^3/ul (0.83-4.51); Lymphocyte % 46.6 % (19-41); Mean Corp Hgb Conc 32.9 g/dL (32-36); Mean Corpuscular Hgb 31.9 pg (27.0-32.0); Mean Corpuscular Volume 96.9 fL (80-94); Mean Platelet Vol. 11.6 fl (6.2-12.0); Monocyte% 9.4 % (0-10); NRBC Flagged by Analyzer 0 % (0-5); Neutrophil # 2.62 X10^3/uL (2.7-7.7); Platelet Count 180 K/mm3 (150-450); RBC Distribution Width CV 11.9 % (11.6-14.6); RBC Distribution Width SD 42.5 fl (35.1-43.9); Red Blood Count 3.89 M/mm3 (4.6-6.2); White Blood Count 6.4 K/mm3 (4.4-11.0)
[2021-05-17 17:45] LABS: Vitamin D,25 Hydroxy 38.2 ng/mL
[2021-05-17 18:05] LABS: ALB/GLOB Ratio 1.1 RATIO (0.9-2.4); AST(SGOT) 25 U/L (15-37); Alanine Aminotransfer ALT/SGPT 28 U/L (16-61); Albumin, Serum 3.8 g/dL (3.2-5.0); Alkaline Phosphatase 37 U/L (45-117); Anion Gap 5 (5-15); BUN 21 mg/dL (7-18); BUN/Creat Ratio 16.5 RATIO (10-20); Calcium,Total 9.5 mg/dL (8.5-10.1); Chloride 106 mmol/L (98-107); Creatinine, Serum 1.27 mg/dL (0.70-1.30); EST Glomerular Filtration Rate 57 mL/min (>60); Est Glom Filt Rate - Afr Amer 69 mL/min (>60); Globulin 3.6 g/dL (2.2-4.2); Glucose 95 mg/dL (74-106); Potassium 5.3 mmol/L (3.5-5.1); Protein, Total 7.4 g/dL (6.4-8.2); Sodium Level 140 mmol/L (136-145); Thyroid Stim Hormone (TSH) 3.98 uIU/mL (0.358-3.74)
== END ==
PROVIDERS: PCP Family Medicine; Visit Provider Family Medicine Geriatric Medicine
DX: E11.65 Type 2 diabetes mellitus with hyperglycemia (principal); E55.9 Vitamin D deficiency, unspecified; I10 Essential (primary) hypertension
CPT/HCPCS: 36415; 80053; 82306; 84443; 85025

== ENCOUNTER → 2021-05-19 16:41 | Outpatient (CLI) | payer MEDICARE, OTHER, SELFPAY ==
[2021-05-19 17:48] LABS: Anion Gap 5 (5-15); BUN 21 mg/dL (7-18); BUN/Creat Ratio 18.4 RATIO (10-20); Calcium,Total 9.4 mg/dL (8.5-10.1); Chloride 104 mmol/L (98-107); Creatinine, Serum 1.14 mg/dL (0.70-1.30); EST Glomerular Filtration Rate 65 mL/min (>60); Est Glom Filt Rate - Afr Amer 78 mL/min (>60); Glucose 110 mg/dL (74-106); Potassium 4.2 mmol/L (3.5-5.1); Sodium Level 138 mmol/L (136-145)
== END ==
PROVIDERS: Visit Provider Family Medicine Geriatric Medicine
DX: E87.5 Hyperkalemia (principal)
CPT/HCPCS: 36415; 80048

== ENCOUNTER → 2021-06-20 10:03 | Outpatient (CLI) | payer MEDICARE, OTHER, SELFPAY ==
[2021-06-20 12:49] LABS: Anion Gap 8 (5-15); BUN 23 mg/dL (7-18); BUN/Creat Ratio 16.7 RATIO (10-20); Calcium,Total 9.5 mg/dL (8.5-10.1); Chloride 107 mmol/L (98-107); Creatinine, Serum 1.38 mg/dL (0.70-1.30); EST Glomerular Filtration Rate 52 mL/min (>60); Est Glom Filt Rate - Afr Amer 63 mL/min (>60); Glucose 144 mg/dL (74-106); Potassium 4.3 mmol/L (3.5-5.1); Sodium Level 142 mmol/L (136-145)
== END ==
PROVIDERS: PCP Family Medicine Geriatric Medicine
DX: I50.20 Unspecified systolic (congestive) heart failure (principal)
CPT/HCPCS: 36415; 80048

== ENCOUNTER 2021-07-18 10:04 | Outpatient (CLI) | payer MEDICARE, OTHER, SELFPAY ==
[2021-07-18 14:30] LABS: Thyroid Stim Hormone (TSH) 3.99 uIU/mL (0.358-3.74)
== END 2021-07-18 23:59 | disposition short-term general hospital (02) ==
LOC: POLAB3 10:06
PROVIDERS: PCP Family Medicine Geriatric Medicine; Visit Provider Family Medicine Geriatric Medicine
DX: E03.9 Hypothyroidism, unspecified (principal)
CPT/HCPCS: 36415; 84443

== ENCOUNTER 2021-08-15 14:38 | Outpatient (CLI) | payer MEDICARE, OTHER, SELFPAY ==
[2021-08-15 15:50] LABS: Absolute Lymphocyte Count 3.82 X10^3/uL (0.83-4.51); Absolute Neutrophil Count 3.6 X10^3/uL (2.0-7.7); Basophil# 0.02 X10^3/uL; Basophil% 0.2 % (0-1); Eosinophil# 0.14 X10^3/uL; Eosinophils% 1.7 % (0-5); Hematocrit 38.2 % (40-54); Hemoglobin 12.9 g/dL (13.0-16.5); Lymphocyte # 3.82 X10^3/ul (0.83-4.51); Lymphocyte % 46.1 % (19-41); Mean Corp Hgb Conc 33.8 g/dL (32-36); Mean Corpuscular Volume 94.8 fL (80-94); Mean Platelet Vol. 11.6 fl (6.2-12.0); Monocyte# 0.67 X10^3/uL; Monocyte% 8.1 % (0-10); NRBC Flagged by Analyzer 0 % (0-5); Neutrophil # 3.62 X10^3/uL (2.7-7.7); Neutrophil % 43.7 % (47-70); Platelet Count 173 K/mm3 (150-450); RBC Distribution Width CV 12.4 % (11.6-14.6); Red Blood Count 4.03 M/mm3 (4.6-6.2); White Blood Count 8.3 K/mm3 (4.4-11.0)
[2021-08-15 15:53] LABS: ALB/GLOB Ratio 1.1 RATIO (0.9-2.4); AST(SGOT) 26 U/L (15-37); Alanine Aminotransfer ALT/SGPT 33 U/L (16-61); Albumin, Serum 3.7 g/dL (3.2-5.0); Alkaline Phosphatase 37 U/L (45-117); Anion Gap 2 (5-15); BUN 25 mg/dL (7-18); BUN/Creat Ratio 20.8 RATIO (10-20); Chloride 106 mmol/L (98-107); EST Glomerular Filtration Rate 61 mL/min (>60); Est Glom Filt Rate - Afr Amer 74 mL/min (>60); Globulin 3.3 g/dL (2.2-4.2); Glucose 121 mg/dL (74-106); Sodium Level 140 mmol/L (136-145); Thyroid Stim Hormone (TSH) 1.02 uIU/mL (0.358-3.74)
== END 2021-08-15 23:59 | disposition short-term general hospital (02) ==
LOC: POLAB3 14:40
PROVIDERS: PCP Family Medicine Geriatric Medicine; Visit Provider Family Medicine Geriatric Medicine
DX: E11.65 Type 2 diabetes mellitus with hyperglycemia (principal); R53.83 Other fatigue
CPT/HCPCS: 36415; 80053; 84443; 85025

== ENCOUNTER → 2021-08-18 09:33 | Outpatient (CLI) | payer MEDICARE, OTHER, SELFPAY ==
--- NOTE | 2021-08-18 09:58 | ECHOD_ITS ---
Reason For Study: CHF Procedure This was a 2D Doppler, Color Flow transthoracic echocardiogram. Exam performed in department. Left Ventricle Normal LV size. Moderately severe segmental systolic dysfunction (see wall motion). Stage 1 diastolic dysfunction. The estimated ejection fraction is 25 %. Mid-anteroseptal : Akinetic. [place] : Akinetic. Anterio-Basal: Normal. Lateral-Basal: Normal. Infero-Basal: Normal. Right Ventricle Normal RV size. ICD or pacer leads identified within the right ventricle. Normal systolic function. Atria Normal left atrium. Normal right atrium. Mitral Valve Normal mitral valve. Mild (1+) eccentric mitral valve insufficiency. Tricuspid Valve Normal tricuspid valve. Mild tricuspid valve insufficiency. Aortic Valve Trisinus/trileaflet aortic valve. Pulmonic Valve Normal pulmonic valve. Great Vessels Normal aortic root. The pulmonary artery is normal size. Normal inferior vena cava. Pericardium/Pleural No pericardial effusion. MMode/2D Measurements & Calculations LVIDd: 5.6 cm IVSd: 0.60 cm Ao root diam: 3.7 cm LVIDs: 4.6 cm LVPWd: 0.65 cm RVDd: 3.9 cm FS: 19.0 % LAV(MOD-bp): 54.8 ml LA A4C-A/L_phl: 18.2 cm2 LA dimension(2D): 3.6 cm LAV(MOD-bp) Indexed: 30.1 ml/m2 LAV(MOD-sp2): 56.2 ml LAV(MOD-sp4): 53.3 ml RA A4 area: 17.5 cm2 Doppler Measurements & Calculations MV E max aman: 40.8 cm/sec Lat Peak E' Aman: 4.7 cm/sec Med Peak E' Aman: 3.8 cm/sec MV A max aman: 85.2 cm/sec E/E' lat: 8.7 E/E' med: 10.7 MV E/A: 0.48 Ao V2 max: 138.9 cm/sec LV V1 max: 73.7 cm/sec PA V2 max: 99.0 cm/sec Ao max P.7 mmHg LV V1 max P.2 mmHg TR max aman: 201.6 cm/sec TR max P.3 mmHg ECHO/Echo Complete Interpretation Summary Normal LV size. Moderately severe segmental systolic dysfunction (see wall motion). Mild (1+) eccentric mitral valve insufficiency. Stage 1 diastolic dysfunction. The estimated ejection fraction is 25 %. ICD or pacer leads identified within the right ventricle. Compared to previous study, the left ventricular systolic function is the same. . Ordering Physician: GUSTAVO VALLADARES Referring Physician: MONA LEOS Performed By: Kym Corona, RDCS, RVT
== END ==
PROVIDERS: PCP Family Medicine Geriatric Medicine
DX: I50.20 Unspecified systolic (congestive) heart failure (principal); I34.0 Nonrheumatic mitral (valve) insufficiency
CPT/HCPCS: 93306

== ENCOUNTER 2021-08-30 11:00 | Outpatient (CLI) | payer MEDICARE, OTHER, SELFPAY ==
[2021-08-30 12:32] LABS: Thyroid Stim Hormone (TSH) 0.52 uIU/mL (0.358-3.74)
== END 2021-08-30 23:59 | disposition home or self-care (01) ==
LOC: POLAB3 11:01
PROVIDERS: PCP Family Medicine Geriatric Medicine; Visit Provider Family Medicine Geriatric Medicine
DX: E03.9 Hypothyroidism, unspecified (principal)
CPT/HCPCS: 36415; 84443

== ENCOUNTER → 2021-09-05 07:28 | Outpatient (CLI) | payer MEDICARE, OTHER, SELFPAY ==
[2021-09-05 09:55] LABS: Hemoglobin 12.9 g/dL (13.0-16.5); Mean Corp Hgb Conc 33.9 g/dL (32-36); Mean Corpuscular Hgb 32.8 pg (27.0-32.0); Mean Corpuscular Volume 96.7 fL (80-94); Mean Platelet Vol. 11.3 fl (6.2-12.0); Platelet Count 174 K/mm3 (150-450); RBC Distribution Width CV 12.4 % (11.6-14.6); Red Blood Count 3.93 M/mm3 (4.6-6.2); White Blood Count 6.4 K/mm3 (4.4-11.0)
[2021-09-05 10:09] LABS: ALB/GLOB Ratio 1.1 RATIO (0.9-2.4); AST(SGOT) 27 U/L (15-37); Alanine Aminotransfer ALT/SGPT 40 U/L (16-61); Albumin, Serum 3.7 g/dL (3.2-5.0); Alkaline Phosphatase 40 U/L (45-117); Anion Gap 8 (5-15); BUN 22 mg/dL (7-18); BUN/Creat Ratio 18.5 RATIO (10-20); Calcium,Total 9.1 mg/dL (8.5-10.1); Chloride 106 mmol/L (98-107); Creatinine, Serum 1.19 mg/dL (0.70-1.30); EST Glomerular Filtration Rate 62 mL/min (>60); Est Glom Filt Rate - Afr Amer 75 mL/min (>60); Globulin 3.3 g/dL (2.2-4.2); Glucose 111 mg/dL (74-106); Magnesium 2.3 mg/dL (1.6-2.6); Potassium 3.8 mmol/L (3.5-5.1); Sodium Level 140 mmol/L (136-145)
[2021-09-05 10:23] LABS: BNP,B-Type NATRIURETIC PEPTIDE 159.4 pg/mL (0-100)
== END ==
PROVIDERS: PCP Family Medicine Geriatric Medicine
DX: I47.2 Ventricular tachycardia (principal); I50.22 Chronic systolic (congestive) heart failure
CPT/HCPCS: 36415; 80053; 83735; 83880; 85027

== ENCOUNTER → 2021-11-14 | Outpatient (CLI) | payer MEDICARE, OTHER, SELFPAY ==
[2021-11-14 17:18] LABS: Absolute Lymphocyte Count 2.78 X10^3/uL (0.83-4.51); Absolute Neutrophil Count 3.1 X10^3/uL (2.0-7.7); Basophil# 0.02 X10^3/uL; Basophil% 0.3 % (0-1); Eosinophil# 0.14 X10^3/uL; Eosinophils% 2.1 % (0-5); Hematocrit 39.2 % (40-54); Hemoglobin 13.1 g/dL (13.0-16.5); Lymphocyte # 2.78 X10^3/ul (0.83-4.51); Lymphocyte % 40.9 % (19-41); Mean Corp Hgb Conc 33.4 g/dL (32-36); Mean Corpuscular Hgb 32.3 pg (27.0-32.0); Mean Corpuscular Volume 96.8 fL (80-94); Mean Platelet Vol. 11.3 fl (6.2-12.0); Monocyte% 10.3 % (0-10); NRBC Flagged by Analyzer 0 % (0-5); Neutrophil # 3.13 X10^3/uL (2.7-7.7); Neutrophil % 46.1 % (47-70); Platelet Count 173 K/mm3 (150-450); RBC Distribution Width CV 12.2 % (11.6-14.6); RBC Distribution Width SD 43.6 fl (35.1-43.9); Red Blood Count 4.05 M/mm3 (4.6-6.2); White Blood Count 6.8 K/mm3 (4.4-11.0)
[2021-11-14 17:23] LABS: Vitamin D,25 Hydroxy 38.8 ng/mL
[2021-11-14 17:24] LABS: ALB/GLOB Ratio 1.1 RATIO (0.9-2.4); AST(SGOT) 24 U/L (15-37); Alanine Aminotransfer ALT/SGPT 32 U/L (16-61); Albumin, Serum 3.6 g/dL (3.2-5.0); Alkaline Phosphatase 38 U/L (45-117); Anion Gap 4 (5-15); BUN 24 mg/dL (7-18); BUN/Creat Ratio 21.2 RATIO (10-20); Calcium,Total 9.1 mg/dL (8.5-10.1); Chloride 107 mmol/L (98-107); Creatinine, Serum 1.13 mg/dL (0.70-1.30); EST Glomerular Filtration Rate 65 mL/min (>60); Est Glom Filt Rate - Afr Amer 79 mL/min (>60); Globulin 3.4 g/dL (2.2-4.2); Glucose 104 mg/dL (74-106); Potassium 4.8 mmol/L (3.5-5.1); Sodium Level 142 mmol/L (136-145); Thyroid Stim Hormone (TSH) 1.06 uIU/mL (0.358-3.74)
== END | disposition home or self-care (01) ==
LOC: POLAB3 14:21
PROVIDERS: PCP Family Medicine Geriatric Medicine; Visit Provider Family Medicine Geriatric Medicine
DX: E11.65 Type 2 diabetes mellitus with hyperglycemia (principal); E55.9 Vitamin D deficiency, unspecified; I10 Essential (primary) hypertension
CPT/HCPCS: 36415; 80053; 82306; 84443; 85025

== ENCOUNTER → 2022-02-28 | Outpatient (CLI) | payer MEDICARE, OTHER, SELFPAY ==
[2022-02-28 17:21] LABS: Absolute Lymphocyte Count 2.92 X10^3/uL (0.83-4.51); Absolute Neutrophil Count 2.4 X10^3/uL (2.0-7.7); Basophil# 0.02 X10^3/uL; Basophil% 0.3 % (0-1); Eosinophil# 0.13 X10^3/uL; Eosinophils% 2.1 % (0-5); Hematocrit 36.8 % (40-54); Hemoglobin 12.1 g/dL (13.0-16.5); Lymphocyte # 2.92 X10^3/ul (0.83-4.51); Lymphocyte % 47.9 % (19-41); Mean Corp Hgb Conc 32.9 g/dL (32-36); Mean Corpuscular Hgb 31.8 pg (27.0-32.0); Mean Corpuscular Volume 96.8 fL (80-94); Mean Platelet Vol. 11.6 fl (6.2-12.0); Monocyte# 0.57 X10^3/uL; Monocyte% 9.4 % (0-10); NRBC Flagged by Analyzer 0 % (0-5); Neutrophil # 2.44 X10^3/uL (2.7-7.7); Neutrophil % 40.1 % (47-70); Platelet Count 147 K/mm3 (150-450); RBC Distribution Width CV 13.3 % (11.6-14.6); RBC Distribution Width SD 47.8 fl (35.1-43.9); White Blood Count 6.1 K/mm3 (4.4-11.0)
[2022-02-28 17:43] LABS: Vitamin D,25 Hydroxy 49.7 ng/mL
[2022-02-28 17:47] LABS: ALB/GLOB Ratio 1.2 RATIO (0.9-2.4); AST(SGOT) 23 U/L (15-37); Alanine Aminotransfer ALT/SGPT 28 U/L (16-61); Albumin, Serum 3.6 g/dL (3.2-5.0); Alkaline Phosphatase 38 U/L (45-117); Anion Gap 4 (5-15); BUN 34 mg/dL (7-18); BUN/Creat Ratio 23.9 RATIO (10-20); Calcium,Total 8.7 mg/dL (8.5-10.1); Chloride 108 mmol/L (98-107); Creatinine, Serum 1.42 mg/dL (0.70-1.30); EST Glomerular Filtration Rate 50 mL/min (>60); Est Glom Filt Rate - Afr Amer 61 mL/min (>60); Globulin 3.1 g/dL (2.2-4.2); Glucose 101 mg/dL (74-106); Potassium 5.3 mmol/L (3.5-5.1); Protein, Total 6.7 g/dL (6.4-8.2); Sodium Level 140 mmol/L (136-145); Thyroid Stim Hormone (TSH) 1.51 uIU/mL (0.358-3.74)
== END | disposition home or self-care (01) ==
LOC: POLAB3 14:27
PROVIDERS: PCP Family Medicine Geriatric Medicine; Visit Provider Family Medicine Geriatric Medicine
DX: I10 Essential (primary) hypertension (principal); E11.65 Type 2 diabetes mellitus with hyperglycemia; E55.9 Vitamin D deficiency, unspecified
CPT/HCPCS: 36415; 80053; 82306; 84443; 85025

== ENCOUNTER → 2022-03-05 | Outpatient (CLI) | payer MEDICARE, OTHER, SELFPAY ==
[2022-03-05 10:20] LABS: Anion Gap 6 (5-15); BUN 27 mg/dL (7-18); BUN/Creat Ratio 23.3 RATIO (10-20); Calcium,Total 8.8 mg/dL (8.5-10.1); Chloride 107 mmol/L (98-107); Creatinine, Serum 1.16 mg/dL (0.70-1.30); EST Glomerular Filtration Rate 63 mL/min (>60); Est Glom Filt Rate - Afr Amer 77 mL/min (>60); Glucose 113 mg/dL (74-106); Potassium 3.9 mmol/L (3.5-5.1); Sodium Level 141 mmol/L (136-145)
== END | disposition home or self-care (01) ==
LOC: LAB 09:15
PROVIDERS: PCP Family Medicine Geriatric Medicine; Referring Provider Family Medicine Geriatric Medicine; Visit Provider Family Medicine Geriatric Medicine
DX: E87.5 Hyperkalemia (principal)
CPT/HCPCS: 36415; 80048

== ENCOUNTER → 2022-08-30 | Outpatient (CLI) | payer MEDICARE, OTHER, SELFPAY ==
[2022-08-30 17:16] LABS: Absolute Neutrophil Count 2.5 X10^3/uL (2.0-7.7); Basophil# 0.04 X10^3/uL; Basophil% 0.6 % (0-1); Eosinophil# 0.19 X10^3/uL; Hematocrit 40.9 % (40-54); Hemoglobin 13.4 g/dL (13.0-16.5); Lymphocyte % 46.3 % (19-41); Mean Corp Hgb Conc 32.8 g/dL (32-36); Mean Corpuscular Hgb 31.8 pg (27.0-32.0); Mean Corpuscular Volume 97.1 fL (80-94); Mean Platelet Vol. 11.5 fl (6.2-12.0); Monocyte# 0.63 X10^3/uL; Monocyte% 10.1 % (0-10); NRBC Flagged by Analyzer 0 % (0-5); Neutrophil # 2.48 X10^3/uL (2.7-7.7); Neutrophil % 39.7 % (47-70); Platelet Count 146 K/mm3 (150-450); RBC Distribution Width CV 12.5 % (11.6-14.6); RBC Distribution Width SD 44.4 fl (35.1-43.9); Red Blood Count 4.21 M/mm3 (4.6-6.2); White Blood Count 6.3 K/mm3 (4.4-11.0)
[2022-08-30 17:32] LABS: Vitamin D,25 Hydroxy 45.5 ng/mL
[2022-08-30 17:38] LABS: ALB/GLOB Ratio 1.2 RATIO (0.9-2.4); AST(SGOT) 24 U/L (15-37); Alanine Aminotransfer ALT/SGPT 29 U/L (16-61); Albumin, Serum 3.9 g/dL (3.2-5.0); Alkaline Phosphatase 44 U/L (45-117); Anion Gap 5 (5-15); BUN 27 mg/dL (7-18); BUN/Creat Ratio 21.4 RATIO (10-20); Calcium,Total 9.2 mg/dL (8.5-10.1); Chloride 107 mmol/L (98-107); Creatinine, Serum 1.26 mg/dL (0.70-1.30); EST Glomerular Filtration Rate 58 mL/min (>60); Est Glom Filt Rate - Afr Amer 70 mL/min (>60); Globulin 3.3 g/dL (2.2-4.2); Glucose 103 mg/dL (74-106); Potassium 4.4 mmol/L (3.5-5.1); Protein, Total 7.2 g/dL (6.4-8.2); Sodium Level 141 mmol/L (136-145); Thyroid Stim Hormone (TSH) 1.74 uIU/mL (0.358-3.74)
== END | disposition home or self-care (01) ==
LOC: POLAB3 14:38
PROVIDERS: PCP Family Medicine Geriatric Medicine; Visit Provider Family Medicine Geriatric Medicine
DX: E55.9 Vitamin D deficiency, unspecified (principal); E11.65 Type 2 diabetes mellitus with hyperglycemia; I10 Essential (primary) hypertension
CPT/HCPCS: 36415; 80053; 82306; 84443; 85025

== ENCOUNTER → 2023-03-06 | Outpatient (CLI) | payer MEDICARE, OTHER, SELFPAY ==
[2023-03-06 15:29] LABS: Absolute Lymphocyte Count 2.54 X10^3/uL (0.83-4.51); Absolute Neutrophil Count 2.9 X10^3/uL (2.0-7.7); Basophil# 0.02 X10^3/uL; Basophil% 0.3 % (0-1); Eosinophil# 0.12 X10^3/uL; Eosinophils% 1.9 % (0-5); Hematocrit 36.7 % (40-54); Hemoglobin 12.2 g/dL (13.0-16.5); Lymphocyte # 2.54 X10^3/ul (0.83-4.51); Lymphocyte % 40.4 % (19-41); Mean Corp Hgb Conc 33.2 g/dL (32-36); Mean Corpuscular Hgb 32.8 pg (27.0-32.0); Mean Corpuscular Volume 98.7 fL (80-94); Mean Platelet Vol. 11.3 fl (6.2-12.0); Monocyte# 0.66 X10^3/uL; Monocyte% 10.5 % (0-10); NRBC Flagged by Analyzer 0 % (0-5); Neutrophil # 2.93 X10^3/uL (2.7-7.7); Neutrophil % 46.6 % (47-70); Platelet Count 141 K/mm3 (150-450); RBC Distribution Width CV 13.1 % (11.6-14.6); RBC Distribution Width SD 47.3 fl (35.1-43.9); Red Blood Count 3.72 M/mm3 (4.6-6.2); White Blood Count 6.3 K/mm3 (4.4-11.0)
[2023-03-06 15:43] LABS: ALB/GLOB Ratio 1.2 RATIO (0.9-2.4); AST(SGOT) 23 U/L (15-37); Alanine Aminotransfer ALT/SGPT 26 U/L (16-61); Albumin, Serum 3.8 g/dL (3.2-5.0); Alkaline Phosphatase 42 U/L (45-117); Anion Gap 5 (5-15); BUN 31 mg/dL (7-18); BUN/Creat Ratio 23.3 RATIO (10-20); Calcium,Total 9.2 mg/dL (8.5-10.1); Chloride 109 mmol/L (98-107); Creatinine, Serum 1.33 mg/dL (0.70-1.30); EST Glomerular Filtration Rate 54 mL/min (>60); Est Glom Filt Rate - Afr Amer 65 mL/min (>60); Globulin 3.1 g/dL (2.2-4.2); Glucose 105 mg/dL (74-106); Potassium 4.9 mmol/L (3.5-5.1); Protein, Total 6.9 g/dL (6.4-8.2); Sodium Level 141 mmol/L (136-145); Thyroid Stim Hormone (TSH) 2.06 uIU/mL (0.358-3.74)
[2023-03-06 15:50] LABS: Vitamin D,25 Hydroxy 51.6 ng/mL
== END | disposition home or self-care (01) ==
LOC: POLAB3 09:39
PROVIDERS: PCP Family Medicine Geriatric Medicine; Visit Provider Family Medicine Geriatric Medicine
DX: E11.65 Type 2 diabetes mellitus with hyperglycemia (principal); E55.9 Vitamin D deficiency, unspecified; I10 Essential (primary) hypertension
CPT/HCPCS: 36415; 80053; 82306; 84443; 85025

== ENCOUNTER → 2023-09-05 | Outpatient (CLI) | payer MEDICARE, OTHER, SELFPAY ==
[2023-09-05 14:19] LABS: Absolute Lymphocyte Count 2.78 X10^3/uL (0.83-4.51); Absolute Neutrophil Count 3.3 X10^3/uL (2.0-7.7); Basophil# 0.02 X10^3/uL; Basophil% 0.3 % (0-1); Eosinophil# 0.14 X10^3/uL; Hematocrit 39.9 % (40-54); Hemoglobin 13.5 g/dL (13.0-16.5); Lymphocyte # 2.78 X10^3/ul (0.83-4.51); Lymphocyte % 40.6 % (19-41); Mean Corp Hgb Conc 33.8 g/dL (32-36); Mean Corpuscular Hgb 32.8 pg (27.0-32.0); Mean Corpuscular Volume 97.1 fL (80-94); Mean Platelet Vol. 11.6 fl (6.2-12.0); Monocyte# 0.58 X10^3/uL; Monocyte% 8.5 % (0-10); NRBC Flagged by Analyzer 0 % (0-5); Neutrophil % 48.2 % (47-70); Platelet Count 162 K/mm3 (150-450); RBC Distribution Width CV 12.4 % (11.6-14.6); RBC Distribution Width SD 44.6 fl (35.1-43.9); Red Blood Count 4.11 M/mm3 (4.6-6.2); White Blood Count 6.9 K/mm3 (4.4-11.0)
[2023-09-05 14:37] LABS: Vitamin D,25 Hydroxy 41.5 ng/mL
[2023-09-05 14:43] LABS: ALB/GLOB Ratio 1.2 RATIO (0.9-2.4); AST(SGOT) 21 U/L (15-37); Alanine Aminotransfer ALT/SGPT 24 U/L (16-61); Albumin, Serum 4.1 g/dL (3.2-5.0); Alkaline Phosphatase 48 U/L (45-117); Anion Gap 1 (5-15); BUN 36 mg/dL (7-18); BUN/Creat Ratio 25.9 RATIO (10-20); Calcium,Total 9.9 mg/dL (8.5-10.1); Chloride 109 mmol/L (98-107); Creatinine, Serum 1.39 mg/dL (0.70-1.30); EST Glomerular Filtration Rate 51 mL/min (>60); Est Glom Filt Rate - Afr Amer 62 mL/min (>60); Globulin 3.3 g/dL (2.2-4.2); Glucose 117 mg/dL (74-106); Potassium 4.8 mmol/L (3.5-5.1); Protein, Total 7.4 g/dL (6.4-8.2); Sodium Level 139 mmol/L (136-145); Thyroid Stim Hormone (TSH) 2.48 uIU/mL (0.358-3.74)
== END | disposition home or self-care (01) ==
LOC: POLAB3 13:15
PROVIDERS: PCP Family Medicine Geriatric Medicine; Visit Provider Family Medicine Geriatric Medicine
DX: E11.65 Type 2 diabetes mellitus with hyperglycemia (principal); E55.9 Vitamin D deficiency, unspecified; I10 Essential (primary) hypertension
CPT/HCPCS: 36415; 80053; 82306; 84443; 85025

== ENCOUNTER → 2024-03-09 | Outpatient (CLI) | payer MEDICARE, OTHER, SELFPAY ==
[2024-03-09 14:23] LABS: Absolute Lymphocyte Count 3.02 X10^3/uL (0.83-4.51); Basophil# 0.03 X10^3/uL; Basophil% 0.4 % (0-1); Eosinophil# 0.18 X10^3/uL; Eosinophils% 2.6 % (0-5); Hematocrit 36.5 % (40-54); Hemoglobin 12.1 g/dL (13.0-16.5); Lymphocyte # 3.02 X10^3/ul (0.83-4.51); Lymphocyte % 43.4 % (19-41); Mean Corp Hgb Conc 33.2 g/dL (32-36); Mean Corpuscular Hgb 31.8 pg (27.0-32.0); Mean Corpuscular Volume 96.1 fL (80-94); Mean Platelet Vol. 11.6 fl (6.2-12.0); Monocyte# 0.67 X10^3/uL; Monocyte% 9.6 % (0-10); NRBC Flagged by Analyzer 0 % (0-5); Neutrophil # 3.03 X10^3/uL (2.7-7.7); Neutrophil % 43.6 % (47-70); Platelet Count 131 K/mm3 (150-450); RBC Distribution Width CV 12.8 % (11.6-14.6); RBC Distribution Width SD 45.3 fl (35.1-43.9)
[2024-03-09 14:58] LABS: Vitamin D,25 Hydroxy 46.7 ng/mL
[2024-03-09 15:05] LABS: ALB/GLOB Ratio 1.1 RATIO (0.9-2.4); AST(SGOT) 22 U/L (15-37); Alanine Aminotransfer ALT/SGPT 22 U/L (16-61); Albumin, Serum 3.7 g/dL (3.2-5.0); Alkaline Phosphatase 48 U/L (45-117); Anion Gap 6 (5-15); BUN 23 mg/dL (7-18); BUN/Creat Ratio 19.5 RATIO (10-20); Calcium,Total 9.1 mg/dL (8.5-10.1); Chloride 109 mmol/L (98-107); Creatinine, Serum 1.18 mg/dL (0.70-1.30); EST Glomerular Filtration Rate 62 mL/min (>60); Est Glom Filt Rate - Afr Amer 75 mL/min (>60); Globulin 3.4 g/dL (2.2-4.2); Glucose 103 mg/dL (74-106); Potassium 4.4 mmol/L (3.5-5.1); Protein, Total 7.1 g/dL (6.4-8.2); Sodium Level 139 mmol/L (136-145)
== END | disposition home or self-care (01) ==
LOC: POLAB3 13:57
PROVIDERS: PCP Family Medicine Geriatric Medicine; Visit Provider Family Medicine Geriatric Medicine
DX: E11.65 Type 2 diabetes mellitus with hyperglycemia (principal); I10 Essential (primary) hypertension; E55.9 Vitamin D deficiency, unspecified
CPT/HCPCS: 36415; 80053; 82306; 84443; 85025

== ENCOUNTER → 2024-09-03 | Outpatient (CLI) | payer MEDICARE, OTHER, SELFPAY ==
[2024-09-03 15:36] LABS: Absolute Lymphocyte Count 3.06 X10^3/uL (0.83-4.51); Absolute Neutrophil Count 3.2 X10^3/uL (2.0-7.7); Basophil# 0.03 X10^3/uL; Basophil% 0.4 % (0-1); Eosinophil# 0.18 X10^3/uL; Eosinophils% 2.5 % (0-5); Hemoglobin 12.8 g/dL (13.0-16.5); Lymphocyte # 3.06 X10^3/ul (0.83-4.51); Lymphocyte % 42.8 % (19-41); Mean Corp Hgb Conc 32.8 g/dL (32-36); Mean Corpuscular Hgb 32.2 pg (27.0-32.0); Mean Corpuscular Volume 98.2 fL (80-94); Mean Platelet Vol. 11.4 fl (6.2-12.0); Monocyte# 0.62 X10^3/uL; Monocyte% 8.7 % (0-10); NRBC Flagged by Analyzer 0 % (0-5); Neutrophil # 3.23 X10^3/uL (2.7-7.7); Neutrophil % 45.2 % (47-70); Platelet Count 160 K/mm3 (150-450); RBC Distribution Width CV 11.9 % (11.6-14.6); RBC Distribution Width SD 43.5 fl (35.1-43.9); Red Blood Count 3.97 M/mm3 (4.6-6.2); White Blood Count 7.2 K/mm3 (4.4-11.0)
[2024-09-03 15:53] LABS: Vitamin D,25 Hydroxy 46.3 ng/mL
[2024-09-03 16:00] LABS: ALB/GLOB Ratio 1.2 RATIO (0.9-2.4); AST(SGOT) 24 U/L (15-37); Alanine Aminotransfer ALT/SGPT 25 U/L (16-61); Albumin, Serum 3.8 g/dL (3.2-5.0); Alkaline Phosphatase 45 U/L (45-117); Anion Gap 3 (5-15); BUN 24 mg/dL (7-18); BUN/Creat Ratio 19.7 RATIO (10-20); Calcium,Total 9.2 mg/dL (8.5-10.1); Chloride 108 mmol/L (98-107); Creatinine, Serum 1.22 mg/dL (0.70-1.30); EST Glomerular Filtration Rate 60 mL/min (>60); Est Glom Filt Rate - Afr Amer 72 mL/min (>60); Globulin 3.3 g/dL (2.2-4.2); Glucose 116 mg/dL (74-106); Potassium 4.9 mmol/L (3.5-5.1); Protein, Total 7.1 g/dL (6.4-8.2); Sodium Level 140 mmol/L (136-145)
== END | disposition home or self-care (01) ==
LOC: LAB 14:57
PROVIDERS: PCP Family Medicine Geriatric Medicine; Referring Provider Family Medicine Geriatric Medicine; Visit Provider Family Medicine Geriatric Medicine
DX: E11.65 Type 2 diabetes mellitus with hyperglycemia (principal); E55.9 Vitamin D deficiency, unspecified; I10 Essential (primary) hypertension
CPT/HCPCS: 36415; 80053; 82306; 84443; 85025

== ENCOUNTER → 2025-03-10 | Outpatient (CLI) | payer MEDICARE, OTHER, SELFPAY ==
[2025-03-10 14:09] LABS: Hematocrit 34.9 % (40-54); Hemoglobin 12.0 g/dL (13.0-16.5); Immature Granulocytes Count 0.020 X10^3/uL (0.0-0.0); Mean Corp Hgb Conc 34.4 g/dL (32-36); Mean Corpuscular Volume 96.1 fL (80-94); Mean Platelet Vol. 11.3 fl (6.2-12.0); NRBC Flagged by Analyzer 0.3 % (0-5); Platelet Count 141 K/mm3 (150-450); RBC Distribution Width CV 12.3 % (11.6-14.6); RBC Distribution Width SD 43.6 fl (35.1-43.9); Red Blood Count 3.63 M/mm3 (4.6-6.2); White Blood Count 7.5 K/mm3 (4.4-11.0)
[2025-03-10 14:50] LABS: AST(SGOT) 22 U/L (<=37); Alanine Aminotransfer ALT/SGPT 17 U/L (<=46); Albumin, Serum 4.2 g/dL (3.4-4.8); Alkaline Phosphatase 42 U/L (40-129); Anion Gap 11 (5-15); BUN 32 mg/dL (4-19); BUN/Creat Ratio 26.3 RATIO (10-20); Calcium,Total 9.2 mg/dL (7.6-11.0); Carbon Dioxide 22.2 mmol/L (21.0-32.0); Chloride 106 mmol/L (98-108); Globulin 2.3 g/dL (2.2-4.2); Glucose 115 mg/dL (70-99); Potassium 4.6 mmol/L (3.3-5.1); Vitamin D,25 Hydroxy 36.1 ng/mL (30-100)
[2025-03-10 21:56] LABS: Xtra Tube Kwok EXTRA TUBE
== END | disposition home or self-care (01) ==
LOC: POLAB3 13:56
PROVIDERS: PCP Family Medicine Geriatric Medicine; Visit Provider Family Medicine Geriatric Medicine
DX: I10 Essential (primary) hypertension (principal); E03.9 Hypothyroidism, unspecified; E55.9 Vitamin D deficiency, unspecified
CPT/HCPCS: 36415; 80053; 82306; 84443; 85025